=== PATIENT | male | born 1955 | race Caucasian/White ===

== ENCOUNTER 2020-02-12 13:35 | Emergency (ER) | payer OTHER, SELFPAY ==
[~2020-02-12] VITALS: Ht 175.3 cm; Wt 97.9 kg
[2020-02-12 14:42] LABS: BASO # 0.1 10^3/uL (0.0-0.2); BASO % 0.7 % (0.0-1.0); EOS # 0.1 10^3/uL (0.0-0.5); EOS % 0.7 % (0.0-3.0); HEMATOCRIT 45.1 % (42.0-52.0); HEMOGLOBIN 14.1 g/dl (13.5-17.5); LYMPH # 1.9 10^3/uL (1.5-5.0); LYMPH % 27.2 % (24.0-44.0); MEAN CORPUSCULAR HEMOGLOBIN 27.1 pg (27.0-33.0); MEAN CORPUSCULAR HGB CONC 31.3 g/dl (32.0-36.5); MEAN CORPUSCULAR VOLUME 86.7 fl (80.0-96.0); MONO # 0.5 10^3/uL (0.0-0.8); MONO % 6.7 % (0.0-5.0); NEUTROPHILS # 4.5 10^3/uL (1.5-8.5); NEUTROPHILS % 64.1 % (36.0-66.0); PLATELET COUNT, AUTOMATED 312 10^3/uL (150-450)
--- NOTE | 2020-02-12 14:47 | REP ---
INDICATION: hypertensive urgency; vertigo. COMPARISON: None. TECHNIQUE: Helical scanning is acquired. 5 mm axial images were reformatted. Coronal MPR images were generated. FINDINGS: Bone window settings demonstrate an intact bony calvarium. There is no evidence of skull fracture or incidental bony calvarial lesion. The visualized paranasal sinuses appear clear. No intraorbital abnormality is seen. On soft tissue window setting images; the lateral, third, and fourth ventricles are normal in size and position. Pimentel-white differentiation pattern is normal above and below the tentorium. There are is no evidence of intracranial hemorrhage. No mass, edema, infarction, or midline shift is seen. No extra-axial fluid collection is appreciated. There are subtle subcortical and periventricular white matter changes in the frontal lobe on the right consistent with mild small vessel atherosclerotic changes. There is minimal vascular calcification in the carotid siphons. IMPRESSION: Mild small vessel changes and vascular calcification. No acute intracranial abnormality.. <Electronically signed by Giovanni Araiza > 02/12/20 1286
--- NOTE | 2020-02-12 15:12 | REP ---
INDICATION: hypertensive urgency. COMPARISON: None. TECHNIQUE: Sitting AP portable chest radiograph. FINDINGS: Monitoring electrodes are seen. Lungs are well inflated and clear. The pleural angles are sharp. Heart size is borderline. Pulmonary vasculature is not increased. No bony abnormality is seen. IMPRESSION: Borderline heart size. Otherwise no acute disease. <Electronically signed by Giovanni Araiza > 02/12/20 0291
[2020-02-12] MEDS ORDERED: LABETALOL 100MG/20ML VIAL IV STA ×2 (15:16→15:44)
[2020-02-12 15:57] VITALS: BP 170/86
[2020-02-12 16:13] LABS: BLOOD UREA NITROGEN 11 MG/DL (7-18); CALCIUM LEVEL 8.9 MG/DL (8.8-10.2); CARBON DIOXIDE LEVEL 29 MEQ/L (21-32); CHLORIDE LEVEL 108 MEQ/L (98-107); CPK CREATINE PHOSPHOKINASE 66 U/L (39-308); CREATININE FOR GFR 0.99 MG/DL (0.70-1.30); GLOMERULAR FILTRATION RATE > 60.0 (>49); GLUCOSE, FASTING 111 MG/DL (70-100); MB/CK RELATIVE INDEX 3.03 (< OR =4); POTASSIUM SERUM 4.4 MEQ/L (3.5-5.1); SODIUM LEVEL 142 MEQ/L (136-145); TROPONIN I < 0.02 NG/ML (< 0.10)
[2020-02-12 17:31] VITALS: BP 174/81
[2020-02-12 17:47] VITALS: O2SAT 98
[2020-02-12] MEDS ORDERED: CHLO125TA PO ×2 (17:51→17:53)
[2020-02-12] MEDS ORDERED: K-TA1TAB PO (17:51)
[2020-02-12] MEDS ORDERED: LABE200T32 PO (17:51)
--- NOTE | 2020-02-13 08:42 | ECGEPIP ---
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
== END 2020-02-12 18:12 | disposition home or self-care (01) ==
LOC: M ED 13:35
DX: I16.0 Hypertensive urgency (principal); R00.0 Tachycardia, unspecified; I10 Essential (primary) hypertension; F17.200 Nicotine dependence, unspecified, uncomplicated; Z88.0 Allergy status to penicillin

== ENCOUNTER 2020-04-28 19:22 | Emergency (ER) | payer BC ==
[~2020-04-28] VITALS: Ht 175.3 cm; Wt 93.2 kg
[~2020-04-28 19:22] MED LIST: CHLO125TA PO; K-TA1TAB PO; LABE200T32 PO
[2020-04-28] MEDS ORDERED: MECLIZINE 25 MG TABLET PO ONE (20:45)
--- OUTSIDE RECORDS SUMMARY | 2020-04-28 20:52 | CCD | Continuity of Care Document ---
Author Author Pascual REID Organization Unknown Address [address] [address] Phone [phone] Care Team Providers Care College Intern Name Role Phone Adeel Bass JR, MD [facility] Unavailable Problems Description No Information Available Social History Type Date Description Comments Sex Unknown ETOH Use consumes 5-6 beers per week Tobacco Use Start: Unknown Patient has never smoked Allergies, Adverse Reactions, Alerts Active Allergies Reaction Severity Comments Date Penicillin G rash 03/17/2020 Medications Active Medications SIG Qnty Indications Ordering Provide r Date Labetalol HCL 200mg Tablets 1 by mouth twice a day 180tabs RICHY Joe JR 021 Potassium Chloride ER 20Meq Tablet s ER 1 by mouth every day 90tabs RICHY Joe JR 08/2020 Chlorthalidone 25mg Tablets take 1/2 tablet by mouth every morning 45tabs RICHY Joe JR 03/17/2020 History Medications Chlorthalidone 25mg Tablets take 1/2 tablet by mouth every morning 45tabs RICHY Joe JR 03/17/2020 - 03/17/2020 Immunizations Description No Information Available Vital Signs Date Vital Result Comment 03/17/2020 9:12am BP Systolic 144 mmHg BP Diastolic 80 mmHg Heart Rate 84 /min Height 68.25 inches 5'8.25" Weight 204.00 lb BMI (Body Mass Index) 30.8 kg/m2 Results Test Acquired Date Facility Test Result H/L Range Note Laboratory test finding 03/17/2020 [facility] [employer] Machine Operator dominique cabrera Maintenance Supervisor 2Nd Shift: [place] [address] [phone] PSA <pending> Procedures Description No Information Available Medical Devices Description No Information Available Encounters Description No Information Available Assessments Description No Information Available Plan of Treatment 03/17/2020 - RICHY Joe JR* All * New Medication:* Labetalol HCL 200 mg - 1 by mouth twice a day * Potassium Chloride ER 20 Meq - 1 by mouth every day * Chlorthalidone 25 mg - take 1/2 tablet by mouth every morning * Chlorthalidone 25 mg - take 1/2 tablet by mouth every morning Functional Status Description No Information Available Mental Status Description No Information Available Referrals Description No Information Available
--- OUTSIDE RECORDS SUMMARY | 2020-04-28 20:52 | CCD | Continuity of Care Document ---
Author Author Pascual WOODS Organization Unknown Address [address] [address] Phone [phone] Care Team Providers Care Churn Operator Margarine Name Role Phone Adeel Bass JR, MD [facility] Unavailable Problems Description No Information Available Social History Type Date Description Comments Sex Unknown ETOH Use consumes 5-6 beers per week Tobacco Use Start: Unknown Patient has never smoked Exercise Type/Frequency Exercises regularly Walk s regularly 6-7 miles a day Smoke Alarms Carbon Monoxide Detector: Yes Smoke Alarms Yes Allergies, Adverse Reactions, Alerts Active Allergies Reaction [...] Date Facility Test Result H/L Range Note Complete Blood Count 03/17/2020 [facility] Biometrics Technician: [place] [address] [phone] WBC 7.3 x10*3/UL 4.1 - 10.9 RBC 4.90 x10*6/UL 4.20 - 6.30 Hemoglobin 13.9 g/dL 12.0 - 18.0 Hematocrit 40.5 % 37.0 - 51.0 MCV 82.6 fL 80.0 - 97.0 MCH 28.3 pg 26.0 - 32.0 MCHC 34.2 g/dL 31.0 - 38.0 RDW 13.1 % 11.6 - 13.7 PLT 216 x10*3/UL 140 - 440 MPV 7.5 FL Low 7.8 - 11.0 Lymph % 36.2 % 10.0 - 58.5 Mid % 7.5 % 1.7 - 9.3 Neut % 56.3 % 37.0 - 92.0 Lymph # 2.6 x10*3/UL 0.6 - 4.1 Mid # 0.6 x10*3/UL 0.1 - 0.6 Neut # 4.1 x10*3/UL 2.0 - 7.8 Comprehensive Chem Profile 03/17/2020 [facility] Biometrics Technician: Dr Adeel Bass [place], [place] [id number] [phone] Glucose 112 mg/dL High 74 - 99 1 BUN 14 mg/dL 7 - 18 Creatinine 1.2 mg/dL 0.6 - 1.3 Sodium 140 mEq/L 136 - 145 Potassium 4.1 mEq/L 3.5 - 5.1 Chloride 102 mEq/L 98 - 107 Carbon Dioxide 31 mEq/L 21 - 32 Calcium 9.4 mg/dL 8.5 - 10.1 Alk. Phosphatase 140 mg/dL High 46 - 116 2 Total Bilirubin 1.1 mg/dL High 0.2 - 1.0 Ast (Sgot) 78 U/L High 15 - 37 Alt (SGPT) 67 U/L 12 - 78 Albumin 3.9 g/dL 3.4 - 5.0 Total Protein 7.3 g/dL 6.4 - 8.2 A/G Ratio 1.15 CALC 1.00 - 1.90 GFR >= 60 mL/min >60 GFR >= 60 mL/min >60 3 Lipid Profile 03/17/2020 [facility] Biometrics Technician: Dr Adeel Bass [place], [place] [id number] [phone] Cholesterol 240 mg/dL High 131 - 200 Triglycerides 95 mg/dL 30 - 150 HDL Cholesterol 47 mg/dL 35 - 60 LDL (Calculated) 174 CALC High 50 - 159 Laboratory test finding 03/17/2020 [facility] [employer], Biometrics Technician: [place] [address] [phone] PSA 1.01 ng/mL <4.00 4 Microalbumin/Creatinine Urine 03/17/2020 [facility], Biometrics Technician: [place] [address] [phone] Microalbumin Urine 58.7 mg/L High 1.3 - 20.0 Urine Creatinine 133.0 mg/dL High 30.0 - 125.0 Microalb/Creat Ratio 44.1 ug/mg High 0.0 - 30.0 1 100-125 mg/dL PRE-DIABET ES/FASTING >126 mg/dL DIABETES/FASTING 2 NOTE: ALK PHOS,T.BILI,AST VERIFIED 3 CHRONIC KIDNEY DISEASE STAGI NG PER NKF STAGE I & II GFR >= 60 NORMAL TO MILDLY DECREASED STAGE III GFR 30-59 MODERATELY DECREASED STAGE IV GFR 15-29 SEVERELY DECREASED STAGE V GFR <15 VERY LITTLE GFR LEFT ESRD GFR <15 ON AIRPORT BAGGAGE SCREENER 4 This assay was performed on the Siemens Dimension EXL using the B- Galactosidase/CPRG methodology and should not be compared interchangeably with other methods. The PSA should not be used alone as a screening test for the presence or absence of malignant disease. Procedures Date Code Description Status 03/17/2020 63550 EKG/Interpretation & Report Comp leted Medical Devices Description No Information Available Encounters Type Date Location Provider Dx Diagnosis Office Visit 03/17/2020 9:00a [facility] Woods JR PA Z00.00 Encntr for general adult med ical exam w/o abnormal findings I10 Essential (primary) hyperten cruz R00.0 Tachycardia, unspecified E66.09 Other obesity due to excess calories Z68.30 Body mass index [BMI]30.0-30 .9, adult Z13.220 Encounter for screening for lipoid disorders Z12.5 Encounter for screening for malignant neoplasm of prostate Z13.89 Encounter for screening for other disorder Assessments Date Code Description Provider 03/17/2020 Z00.00 Encounter for genera l adult medical examination without abnormal findings RICHY Joe JR 03/17/2020 I10 Essential (primary) hypertension RICHY Joe JR 03/17/2020 R00.0 Tachycardia, unspecified RICHY Joe JR 03/17/2020 E66.09 Other obesity due to excess amarilis arabella RICHY Joe JR 03/17/2020 Z68.30 Body mass index [BMI]30.0-30.9, adult RICHY Joe JR 03/17/2020 Z13.220 Encounter for screening for lipo id disorders RICHY Joe JR 03/17/2020 Z12.5 Encounter for screening for varun gnant neoplasm of prostate RICHY Joe JR 03/17/2020 Z13.89 Encounter for screening for othe r disorder RICHY Joe JR Plan of Treatment Future Appointment(s):* 06/21/2020 8:50 am - Lab Schedule at [facility] * 09/16/2020 10:00 am - RICHY Joe JR at [facility] 03/17/2020 - RICHY Joe JR* Z00.00 Encounter for general adult medical examination without abnormal findings* Comments:* Labs reviewed, elevated LFTs and cholesterol, admits to drinking, will try to cut back and eat Mediterranean style diet, will consider statin in future, states "he does not want to take medicine", advised alcohol cut back and diet with continued exercise, increase fruits and vegetables to 4-5 servings daily * I10 Essential (primary) hypertension* Comments:* He is currently not at [facility]-8 goals, diet and exercise were discussed including Mediterranean diet and 30 minutes of aerobic exercise daily, continue current medication regimen at this time. He had not had his medications for about 8 days * R00.0 Tachycardia, unspecified* Comments:* HR was elevated, restart on labetolol should help this, no symptoms * E66.09 Other obesity due to excess calories* Comments:* Diet and exercise as above * Z68.30 Body mass index [BMI]30.0-30.9, adult * Z13.220 Encounter for screening for lipoid disorders* Comments:* Lipids elevated, refused treatment at this time, will attempt in future * Z12.5 Encounter for screening for malignant neoplasm of prostate * Z13.89 Encounter for screening for other disorder * All * New Medication:* Labetalol HCL 200 mg - 1 by mouth twice a day * Potassium Chloride ER 20 Meq - 1 by mouth every day * Chlorthalidone 25 mg - take 1/2 tablet by mouth every morning * Chlorthalidone 25 mg - take 1/2 tablet by mouth every morning * Comments:* COVID precautions discussed; frequent hand washing, social distancing and mask wearing RTC 6 months or sooner PRN Functional Status Description No Information Available Mental Status Description No Information Available Referrals Description No Information Available
--- OUTSIDE RECORDS SUMMARY | 2020-04-28 20:52 | CCD | Continuity of Care Document ---
Author Author Pascual REID Organization Unknown Address [address] [address] Phone [phone] Care Team Providers Care Admittance Attendant Name Role Phone Adeel Bass JR, MD [facility] Unavailable Problems Description No Information Available [...] H/L Range Note Complete Blood Count 03/17/2020 [facility] Wheelchair Driver: [place] [address] [phone] WBC 7.3 x10*3/UL 4.1 - 10.9 RBC [...] 2.0 - 7.8 Comprehensive Chem Profile 03/17/2020 [facility], Wheelchair Driver: [place] [address] [phone] Glucose 112 mg/dL High 74 - 99 [...] 60 mL/min >60 3 Lipid Profile 03/17/2020 [facility] , Wheelchair Driver: [place] [address] [phone] Cholesterol 240 mg/dL High 131 - 200 Triglycerides 95 mg/dL 30 - 150 HDL Cholesterol 47 mg/dL 35 - 60 LDL (Calculated) 174 CALC High 50 - 159 Laboratory test finding 03/17/2020 [facility] [employer] [facility] deborah, Wheelchair Driver: Dr Adeel Monroylogg [place], [place] [id number] [phone] PSA 1.01 ng/mL <4.00 4 Microalbumin/Creatinine Urine 03/17/2020 [facility] Wheelchair Driver: Dr Adeel Bass [place], [place] [id number] [phone] Microalbumin Urine 58.7 mg/L High 1.3 - [...] LITTLE GFR LEFT ESRD GFR <15 ON MANUFACTURING ANALYST 4 This assay was performed on the Siemens Dimension EXL using the B- Galactosidase/CPRG methodology and should not be compared interchangeably with other methods. The PSA should not be used alone as a screening test for the presence or absence of malignant disease. Procedures Description No Information Available Medical Devices Description No Information Available Encounters Description No Information Available Assessments Description No Information Available Plan of Treatment Future Appointment(s):* 09/16/2020 10:00 am - RICHY Joe JR at [facility] 03/17/2020 - RICHY Joe JR* All * [...]
--- OUTSIDE RECORDS SUMMARY | 2020-04-28 20:53 | CCD ---
Author Author [facility] Organization [facility] Address Unknown Phone Unavailable Care Team Providers Care Hall Clerk Name Role Phone FRANKLIN JR, Hilton JENKINS PA-C Unavailable Unavailable PICKERAL JR, Hilton JENKINS PA-C Unavailable Unavailable PICKERAL JR, Hilton ALICE PA-C Unavailable Unavailable PICKERAL JR, Hilton JENKINS PA-C Unavailable Unavailable PICKERAL JR, Hilton ALICE PA-C Unavailable Unavailable PICKERAL JR, Hilton JENKINS PA-C Unavailable Unavailable PICKERAL JR, Hilton JENKINS PA-C Unavailable Unavailable PICKERAL JR, Hilton ALICE PA-C Unavailable Unavailable PICKERAL JR, Hilton ALICE PA-C Unavailable Unavailable PICKERAL JR, Hilton ALICE PA-C Unavailable Unavailable PICKERAL JR, Hilton ALICE PA-C Unavailable Unavailable PICKERAL JR, Hilton ALICE PA-C Unavailable Unavailable PICKERAL JR, Hilton ALICE PA-C Unavailable Unavailable PICKERAL JR, Hilton ALICE PA-C Unavailable Unavailable PICKERAL JR, Hilton LAICE PA-C Unavailable Unavailable PICKERAL JR, Hilton ALICE PA-C Unavailable Unavailable PICKERAL JR, Hilton ALICE PA-C Unavailable Unavailable PICKERAL JR, Hilton ALICE PA-C Unavailable Unavailable PICKERAL JR, Hilton ALICE PA-C Unavailable Unavailable PICKERAL JR, Hilton ALICE PA-C Unavailable Unavailable PICKERAL JR, Hilton ALICE PA-C Unavailable Unavailable Re-disclosure Warning The records that you are about to access may contain information from federally-assisted alcohol or drug abuse programs. If such information is present, then the following federally mandated warning applies: This information has been disclosed to you from records protected by federal confidentiality rules (42 CFR part 2). The federal rules prohibit you from making any further disclosure of this information unless further disclosure is expressly permitted by the written consent of the person to whom it pertains or as otherwise permitted by 42 CFR part 2. A general authorization for the release of medical or other information is NOT sufficient for this purpose. The Federal rules restrict any use of the information to criminally investigate or prosecute any alcohol or drug abuse patient.The records that you are about to access may contain highly sensitive health information, the redisclosure of which is protected by Article 27-F of the [facility] Public Health law. If you continue you may have access to information: Regarding HIV / AIDS; Provided by facilities licensed or operated by the [facility] Office of Mental Health; or Provided by the [facility] Office for People With Developmental Disabilities. If such information is present, then the following [facility] mandated warning applies: This information has been disclosed to you from confidential records which are protected by state law. State law prohibits you from making any further disclosure of this information without the specific written consent of the person to whom it pertains, or as otherwise permitted by law. Any unauthorized further disclosure in violation of state law may result in a fine or fpc sentence or both. A general authorization for the release of medical or other information is NOT sufficient authorization for further disc losure. Encounters Encounter Providers Location Date Indications Data Source(s ) Outpatient Attender: ALICE Childs 0 03/17/2020 08:00:00 AM EST [facility] ([facility] ) Medications Medication Brand Name Start Date Product Form Dose Route Admi nistrative Instructions Pharmacy Instructions Status Indications Reaction Description Data Source(s) 25 mg 03/17/2020 12:00:00 AM EST tablet 45 TAKE ONE HALF TABLET BY MOUTH EVERY MORNING TAKE ONE HALF TABLET BY MOUTH EVERY MORNING SOLD: 03/17/2020 [facility] Chlorthalidone 25 MG Oral Tablet Chlorthalidone 03/17/2020 12:00:00 A M EST ORAL active [facility] Potassium Chloride 20 MEQ Extended Release Oral Tablet Potas sium Chloride ER 03/17/2020 12:00:00 AM EST ORAL active [facility] ([facility]) Chlorthalidone 25 MG Oral Tablet Chlorthalidone 03/17/2020 12:00:00 A M EST ORAL completed [facility] 200 mg 03/17/2020 12:00:00 AM EST tablet 180 TAKE ONE TABLET BY MOUTH TWICE A DAY TAKE ONE TABLET BY MOUTH TWICE A DAY SOLD: 03/17/2020 [facility] 20 mEq 03/17/2020 12:00:00 AM EST tablet,ER particles/cry stals 90 TAKE ONE TABLET BY MOUTH EVERY DAY TAKE ONE TABLET BY MOUTH EVERY DAY SOLD: 03/17/2020 [facility] Labetalol hydrochloride 200 MG Oral Tablet Labetalol HCL 03/17/2020 12:00:00 AM EST ORAL active [facility] 20 mEq 02/13/2020 12:00:00 AM EST tablet extended release 30 TAKE ONE TABLET BY MOUTH ONCE DAILY TAKE ONE TABLET BY MOUTH ONCE DAILY SOLD: 02/13/2020 [facility] 25 mg 02/13/2020 12:00:00 AM EST tablet 30 TAKE 1/2 TABLET BY MOUTH DAILY TAKE 1/2 TABLET BY MOUTH DAILY SOLD: 02/13/2020 [facility] 200 mg 02/13/2020 12:00:00 AM EST tablet 60 TAKE ONE TABLET BY MOUTH TWO TIMES A DAY TAKE ONE TABLET BY MOUTH TWO TIMES A DAY SOLD: 02/13/2020 [facility] Insurance Providers Payer name Policy type / Coverage type Policy ID Covered libertarian ID Covered libertarian's relationship to jin Policy Jin [facility] Information [facility]/[phone] [id number] SP [id number] SELF PAY ONLY [id number] SP [id number] [facility] [id number] SP [id number] SELF PAY SP [facility] CLAIMS [id number] SP [id number] Surgeries/Procedures Procedure Description Date Indications Data Source(s) ECG ROUTINE ECG W/LEAST 12 LDS W/I&R 03/17/2020 12:00: 00 AM EST [facility] ([facility]) Results ID Date Data Source [id number] 03/17/2020 08:41:00 AM EST [facility] ([facility]) Name Value Range Interpretation Code Description Data Nini rce(s) Supporting Document(s) Microalbumin Urine 58.7 mg/L 1.3-20.0 [facility] ([facility]) Urine Creatinine 133.0 mg/dL 30.0-125.0 [facility] ([facility]) Microalb/Creat Ratio 44.1 ug/mg 0.0-30.0 [facility] ( [facility]) ID Date Data Source [id number] 03/17/2020 08:41:00 AM EST [facility] ([facility]) Name Value Range Interpretation Code Description Data Nini rce(s) Supporting Document(s) Prostate specific Ag [Mass/volume] in Serum or Plasma 1.01 ng/mL [facility] ([facility]) This assay was performed on the Siemens Dimension EXL using the B- Galactosidase/CPRG methodology and should not be compared interchangeably with other methods. The PSA should not be used alone as a screening test for the presence or absence of malignant disease. ID Date Data Source [id number] 03/17/2020 08:41:00 AM EST [facility] ([facility]) Name Value Range Interpretation Code Description Data Nini rce(s) Supporting Document(s) Cholesterol [Mass/volume] in Serum or Plasma 240 mg/dL 131-200 [facility] ([facility]) Triglyceride [Mass/volume] in Serum or Plasma 95 mg/dL 30-150 [facility] ([facility]) Cholesterol in HDL [Mass/volume] in Serum or Plasma 47 mg/dL 35-60 [facility] ([facility]) Cholesterol in LDL [Mass/volume] in Serum or Plasma by calcu lation 174 CALC 50-159 [facility] ([facility]) ID Date Data Source [id number] 03/17/2020 08:41:00 AM EST [facility] ([facility]) Name Value Range Interpretation Code Description Data Nini rce(s) Supporting Document(s) Glucose [Mass/volume] in Serum or Plasma 112 mg/dL 74-99 [facility] ([facility]) 100-125 mg/dL PRE-DIABETES/FASTING >126 mg/dL DIABETES/FASTING Sodium [Moles/volume] in Serum or Plasma 140 meq/L 136-145 [facility] ([facility]) Creatinine 1.2 mg/dL 0.6-1.3 [facility] Urea nitrogen [Mass/volume] in Serum or Plasma 14 mg/dL 7-18 [facility] ([facility]) Potassium [Moles/volume] in Serum or Plasma 4.1 meq/L 3.5-5.1 [facility] ([facility]) Chloride [Moles/volume] in Serum or Plasma 102 meq/L 98-107 [facility] ([facility]) Carbon dioxide, total [Moles/volume] in Serum or Plasma 31 meq/L 21 -32 [facility] Total Bilirubin 1.1 mg/dL 0.2-1.0 [facility] ([facility]) Calcium [Mass/volume] in Serum or Plasma 9.4 mg/dL 8.5-10.1 [facility] ([facility]) Alkaline phosphatase isoenzyme [Units/volume] in Serum or Pl asma 140 mg/dL 46-116 [facility] ([facility]) NOTE: ALK PHOS,T.BILI,AST VERIFIED Aspartate aminotransferase [Enzymatic activity/volume] in Serum or Plasma 78 U/L 15-37 [facility] ([facility] ) Alanine aminotransferase [Enzymatic activity/volume] in Seru m or Plasma 67 U/L 12-78 [facility] Albumin [Mass/volume] in Serum or Plasma 3.9 g/dL 3.4-5.0 [facility] ([facility]) Glomerular filtration rate/1.73 sq M pre dicted among non-blacks [Volume Rate/Area] in Serum or Plasma by Creatinine-based formula (MDRD) Laboratory test result [facility] Proteinase 3 Ab [Units/volume] in Serum 7.3 g/dL 6.4-8.2 [facility] A/G Ratio 1.15 CALC 1.00-1.90 [facility]) Glomerular filtration rate/1.73 sq M pre dicted among blacks [Volume Rate/Area] in Serum or Plasma by Creatinine-based formula (MDRD) Laboratory test result [facility] <content>CHRONIC KIDNEY DISEASE STAGING PER NKF</content>
<content></content>
<content>STAGE I & II GFR >= 60 NORMAL TO MILDLY DECREASED</content>
<content>STAGE III GFR 30-59 MODERATELY DECREASED</content>
<content>STAGE IV GFR 15-29 SEVERELY DECREASED</content>
<content>STAGE V GFR <15 VERY LITTLE GFR LEFT</content>
<content>ESRD GFR <15 ON MANAGER METAL</content>
<content></content> ID Date Data Source [id number] 03/17/2020 08:41:00 AM EST [facility] ([facility]) Name Value Range Interpretation Code Description Data Nini rce(s) Supporting Document(s) Leukocytes [#/volume] in Blood by Automated count 7.3 x10*3/UL 4.1-10 .9 [facility] ([facility]) Hemoglobin [Mass/volume] in Blood 13.9 g/dL 12.0-18.0 [facility] ([facility]) Erythrocytes [#/volume] in Blood by Automated count 4.90 x10*6/UL 4.2 0-6.30 [facility] ([facility]) Hematocrit [Volume Fraction] of Blood by Automated count 40.5 % 3 7.0-51.0 [facility] ([facility]) MCHC 34.2 g/dL 31.0-38.0 [facility] MCH 28.3 pg 26.0-32.0 [facility] MCV 82.6 fL 80.0-97.0 [facility] Erythrocyte distribution width [Ratio] by Automated count 13.1 % 11.6-13.7 [facility] ([facility]) Platelets [#/volume] in Blood by Automated count 216 x10*3/UL 140-440 [facility] ([facility]) MPV 7.5 FL 7.8-11.0 [facility] Mid % 7.5 % 1.7-9.3 [facility] Lymph % 36.2 % 10.0-58.5 [facility] Neut % 56.3 % 37.0-92.0 [facility] Mid # 0.6 x10*3/UL 0.1-0.6 [facility] ([facility]) Neut # 4.1 x10*3/UL 2.0-7.8 [facility] Lymph # 2.6 x10*3/UL 0.6-4.1 [facility] ([facility]) Procedure Vital Signs ID Date Data Source UNK Name Value Range Interpretation Code Description Data Source(s) Body mass index (BMI) [Ratio] 30.8 kg/m2 30.8 k g/m2 [facility] ([facility]) Body weight 204.00 [lb_av] 204.00 [lb_av] RAVINDEREN T ([facility]) Body height 68.25 [in_i] 68.25 [in_i] [facility] 5'8.25" Heart rate 84 /min 84 /min [facility] Diastolic blood pressure 80 mm[Hg] 80 mm[Hg] [facility] ([facility]) Systolic blood pressure 144 mm[Hg] 144 mm[Hg] Maria Alejandra MENA ([facility])
[2020-04-28] MEDS ORDERED: MECL1TAB31 PO (21:32)
[2020-04-28 21:42] VITALS: O2SAT 95
[2020-04-28 21:46] VITALS: BP 133/76
--- NOTE | 2020-04-30 08:11 | ECGEPIP ---
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
== END 2020-04-28 22:00 | disposition home or self-care (01) ==
LOC: M ED 19:22
DX: H81.4 Vertigo of central origin (principal); I10 Essential (primary) hypertension; F17.200 Nicotine dependence, unspecified, uncomplicated; Z88.0 Allergy status to penicillin

== ENCOUNTER → 2020-09-27 | Outpatient (CLI) | payer BC ==
[~2020-09-27] MED LIST changes: +MECL1TAB31 PO
--- NOTE | 2020-09-27 14:52 | REP ---
INDICATION: LT LEG PAIN SWELLING ? DVT COMPARISON: None. TECHNIQUE: Real time compression and duplex Doppler interrogation of the left lower extremity deep venous system is performed.Compression of the left peroneal and posterior tibial veins is performed. FINDINGS: The left common femoral, superficial femoral and popliteal veins are fully compressible with transducer pressure and demonstrate normal spontaneous and phasic flow, without evidence of deep venous thrombosis. The visualized left peroneal and posterior tibial veins demonstrate no thrombus. IMPRESSION: No evidence of deep venous thrombosis of the left lower extremity femoral popliteal venous system.No thrombus in the visualized left peroneal and posterior tibial veins. <Electronically signed by Pascual Pimentel > 09/27/20 [id number]
== END ==
LOC: M RAD 13:48
PROVIDERS: ATTEND Physician Assistant Medical
DX: M79.89 Other specified soft tissue disorders (principal)

== ENCOUNTER 2020-12-31 14:16 | Emergency (ER) | payer BC ==
[~2020-12-31] VITALS: Ht 175.3 cm; Wt 90.9 kg
[2020-12-31 15:15] LABS: VENOUS BASE EXCESS 1.1 (-2.0-2.0); VENOUS HCO3 25.8 MEQ/L (23.0-27.0); VENOUS PARTIAL PRESSURE CO2 41.3 mmHg (38.0-50.0); VENOUS PARTIAL PRESSURE O2 74.9 mmHg (30.0-50.0); VENOUS PH 7.414 UNITS (7.330-7.430); VENOUS STANDARD HCO3 25.4 MEQ/L; VENOUS TOTAL CO2 27.1 MEQ/L (24.0-28.0)
[2020-12-31 15:19] LABS: BASO # 0.1 10^3/uL (0.0-0.2); BASO % 0.7 % (0.0-1.0); EOS # 0.1 10^3/uL (0.0-0.5); EOS % 1.2 % (0.0-3.0); HEMATOCRIT 39.3 % (42.0-52.0); HEMOGLOBIN 13.1 g/dl (13.5-17.5); LYMPH # 1.8 10^3/uL (1.5-5.0); LYMPH % 27.1 % (24.0-44.0); MEAN CORPUSCULAR HEMOGLOBIN 27.9 pg (27.0-33.0); MEAN CORPUSCULAR HGB CONC 33.3 g/dl (32.0-36.5); MEAN CORPUSCULAR VOLUME 83.6 fl (80.0-96.0); MONO # 0.8 10^3/uL (0.0-0.8); MONO % 11.2 % (2.0-8.0); NEUTROPHILS % 59.1 % (36.0-66.0); PLATELET COUNT, AUTOMATED 200 10^3/uL (150-450); WHITE BLOOD COUNT 6.7 10^3/uL (4.0-10.0)
--- NOTE | 2020-12-31 15:23 | REP ---
INDICATION: syncope. COMPARISON: 02/12/2020 also portable TECHNIQUE: Portable FINDINGS: The technique utilized in obtaining the radiograph has magnified the cardiac silhouette and accentuated the interstitial markings. The cardiomediastinal silhouette lung parrish are unchanged. No acute patchy parenchymal opacities or pleural effusions have developed. Mild cardiomegaly accentuated by technique cannot be ruled out. The osseous structures are stable and intact. IMPRESSION: There is no acute cardiopulmonary disease. <Electronically signed by Alex Fernandez > 12/31/20 [id number]
--- OUTSIDE RECORDS SUMMARY | 2020-12-31 15:29 | CCD | Continuity of Care Document ---
Author Author [facility] Organization Unknown Address [address] [address] Phone Unavailable Care Team Providers Care Fast Food Delivery Driver Name Role Phone Adeel Bass JR, MD AUTMaria Alejandra Unavailable Problems Description No Information Available Social History Type Date Description Comments Sex Unknown ETOH Use consumes 5-6 beers per week Tobacco Use Start: Unknown Patient has never smoked Exercise Type/Frequency Exercises regularly Walk s regularly 6-7 miles a day Smoke Alarms Carbon Monoxide Detector: Yes Smoke Alarms Yes Allergies, Adverse Reactions, Alerts Active Allergies Criticality Reaction | Severity Comments Date Penicillin G Unable to assess criticality rash 03/17/2020 Medications Active Medications SIG Qnty Indications Ordering Provide r Date Labetalol HCL 200mg Tablets 1 by mouth twice a day 180tabs RICHY Joe JR 021 Potassium Chloride ER 20Meq Tablet s ER 1 by mouth every day 90tabs RICHY Joe JR 08/2020 Chlorthalidone 25mg Tablets take 1/2 tablet by mouth every morning 45tabs RICHY Joe JR 03/17/2020 Immunizations Description No Information Available Vital Signs Date Vital Result Comment 09/24/2020 9:36am BP Systolic 148 mmHg BP Diastolic 88 mmHg BP Systolic Recheck 134 mmHg BP Diastolic Recheck 84 mmHg Heart Rate 95 /min Height 68.25 inches 5'8.25" Weight 199.00 lb O2 % BldC Oximetry 95 % BMI (Body Mass Index) 30.0 kg/m2 03/17/2020 9:12am BP Systolic 144 mmHg BP Diastolic 80 mmHg Heart Rate 84 /min Height 68.25 inches 5'8.25" Weight 204.00 lb BMI (Body Mass Index) 30.8 kg/m2 Results Test Acquired Date Facility Test Result H/L Range Note Complete Blood Count 09/24/2020 [facility] J[employer] Bag Clipper: [place] [address] [phone] WBC 6.6 x10*3/UL 4.1 - 10.9 RBC 4.81 x10*6/UL 4.20 - 6.30 Hemoglobin 13.3 g/dL 12.0 - 18.0 Hematocrit 39.8 % 37.0 - 51.0 MCV 82.6 fL 80.0 - 97.0 MCH 27.6 pg 26.0 - 32.0 MCHC 33.4 g/dL 31.0 - 38.0 RDW 13.3 % 11.6 - 13.7 PLT 222 x10*3/UL 140 - 440 MPV 7.3 FL Low 7.8 - 11.0 Lymph % 28.4 % 10.0 - 58.5 Mid % 8.0 % 1.7 - 9.3 Neut % 63.6 % 37.0 - 92.0 Lymph # 1.8 x10*3/UL 0.6 - 4.1 Mid # 0.6 x10*3/UL 0.1 - 0.6 Neut # 4.2 x10*3/UL 2.0 - 7.8 Basic Metabolic Panel 09/24/2020 [facility] [employer] [facility] Clipper: [place] [address] [phone] Glucose 136 mg/dL High 74 - 99 1 BUN 11 mg/dL 7 - 18 Creatinine 1.2 mg/dL 0.6 - 1.3 Sodium 137 mEq/L 136 - 145 Potassium 4.1 mEq/L 3.5 - 5.1 Chloride 102 mEq/L 98 - 107 Carbon Dioxide 28 mEq/L 21 - 32 Calcium 9.8 mg/dL 8.5 - 10.1 GFR >= 60 mL/min >60 GFR >= 60 mL/min >60 2 Liver Function Profile 07/05/2020 [facility] [facility] Clipper: Dr Ade[place] [address] [phone] Alk. Phosphatase 131 mg/dL High 46 - 116 Total Bilirubin 1.1 mg/dL High 0.2 - 1.0 Ast (Sgot) 37 U/L 15 - 37 Alt (SGPT) 44 U/L 12 - 78 Albumin 3.8 g/dL 3.4 - 5.0 Total Protein 7.1 g/dL 6.4 - 8.2 Direct Bilirubin 0.3 mg/dL High 0.0 - 0.2 A/G Ratio 1.15 CALC 1.00 - 1.90 1 100-125 mg/dL PRE-DIABET ES/FASTING >126 mg/dL DIABETES/FASTING 2 CHRONIC KIDNEY DISEASE STAGI NG PER NKF STAGE I & II GFR >= 60 NORMAL TO MILDLY DECREASED STAGE III GFR 30-59 MODERATELY DECREASED STAGE IV GFR 15-29 SEVERELY DECREASED STAGE V GFR <15 VERY LITTLE GFR LEFT ESRD GFR <15 ON PHOSPHORIC ACID SUPERVISOR Procedures Date Code Description Status 09/24/2020 67445 Office/Outpatient Established Mo d MDM 30-39 Min Completed Medical Devices Description No Information Available Encounters Type Date Location Provider Dx Diagnosis Office Visit 09/24/2020 10:00a [facility] RICHY Sorto JR I10 Essential (primary) hyperten cruz R22.42 Localized swelling, mass and lump, left lower limb R00.0 Tachycardia, unspecified E66.09 Other obesity due to excess calories Z68.30 Body mass index [BMI] 30.0-3 0.9, adult Assessments Date Code Description Provider 09/24/2020 I10 Essential (primary) hypertension RICHY Joe JR 09/24/2020 R22.42 Localized swelling, mass and lum p, left lower limb RICHY Joe JR 09/24/2020 R00.0 Tachycardia, unspecified RICHY Joe JR 09/24/2020 E66.09 Other obesity due to excess amarilis arabella RICHY Joe JR 09/24/2020 Z68.30 Body mass index [BMI]30.0-30.9, adult RICHY Joe JR 07/05/2020 R74.9 Abnormal serum enzyme level, uns pecified Lance Mcghee M.D. 07/05/2020 R74.9 Abnormal serum enzyme level, uns pecified Lab Schedule Plan of Treatment Future Appointment(s):* 03/29/2021 8:20 am - RICHY Joe JR at [facility] 09/24/2020 - Trent Woods JR PA* I10 Essential (primary) hypertension* Comments:* He is currently at [facility] goals, diet and exercise were discussed including Mediterranean diet and 30 minutes of aerobic exercise daily, continue current medication regimen at this time. * R22.42 Localized swelling, mass and lump, left lower limb* Comments:* I plan to give a left lower extremity ultrasound, advise elevation, heat and Tylenol for pain. Concern for DVT is very low, ultrasound may be pushed until next week. * R00.0 Tachycardia, unspecified* Comments:* Plan to continue Labetalol. BP is better controlled. Chest pain none, rate is much better controlled as well. * E66.09 Other obesity due to excess calories* Comments:* Weight is favorable. Continue diet and exercise. Monitor at next visit in 6 months. Sooner if needed. * Z68.30 Body mass index [BMI]30.0-30.9, adult Functional Status Description No Information Available Mental Status Description No Information Available Referrals Description No Information Available
--- OUTSIDE RECORDS SUMMARY | 2020-12-31 15:29 | CCD ---
Author Author [facility] Organization [facility] Address Unknown Phone Unavailable Care Team Providers Care Story Analyst Name Role Phone FRANKLIN VERDUZCO J ALICE PA-C Unavailable Unavailable PICKERAL JR, J ALICE PA-C Unavailable Unavailable PICKERAL JR, J ALICE PA-C Unavailable Unavailable PICKERAL JR, J ALICE PA-C Unavailable Unavailable PICKERAL JR, J ALICE PA-C Unavailable Unavailable PICKERAL JR, J ALICE PA-C Unavailable Unavailable PICKERAL JR, J ALICE PA-C Unavailable Unavailable PICKERAL JR, J ALICE PA-C Unavailable Unavailable PICKERAL JR, J ALICE PA-C Unavailable Unavailable PICKERAL JR, J ALICE PA-C Unavailable Unavailable PICKERAL JR, J ALICE PA-C Unavailable Unavailable PICKERAL JR, J ALICE PA-C Unavailable Unavailable PICKERAL JR, J ALICE PA-C Unavailable Unavailable PICKERAL JR, J ALICE PA-C Unavailable Unavailable PICKERAL JR, J ALICE PA-C Unavailable Unavailable PICKERAL JR, J ALICE PA-C Unavailable Unavailable PICKERAL JR, J ALICE PA-C Unavailable Unavailable PICKERAL JR, J ALICE PA-C Unavailable Unavailable PICKERAL JR, J ALICE PA-C Unavailable Unavailable PICKERAL JR, J ALICE PA-C Unavailable Unavailable PICKERAL JR, J ALICE PA-C Unavailable Unavailable PICKERAL JR, J ALICE PA-C Unavailable Unavailable PICKERAL JR, J ALICE PA-C Unavailable Unavailable PICKERAL JR, J ALICE PA-C Unavailable Unavailable PICKERAL JR, J ALICE PA-C Unavailable Unavailable PICKERAL JR, J ALICE PA-C Unavailable Unavailable PICKERAL JR, J ALICE PA-C Unavailable Unavailable Re-disclosure Warning The [...] is protected by Article 27-F of the [facility] Public Health law. If you continue you may have access to information: Regarding HIV / AIDS; Provided by facilities licensed or operated by the [facility] Office of Mental Health; or Provided by the [facility] Office for People With Developmental Disabilities. If such information is present, then the following [facility] mandated warning applies: This information has been [...] law may result in a fine or senior care sentence or both. A general authorization for the release of medical or other information is NOT sufficient authorization for further disc losure. Encounters Encounter Providers Location Date Indications Data Source(s ) Outpatient Attender: ALICE Childs 0 09/24/2020 10:00:00 AM EDT [facility] ([facility] ) Outpatient Attender: ALICE Childs 0 03/17/2020 08:00:00 AM EST [facility] ([facility] ) Immunizations Vaccine Date Status Description Data Source(s) COVID-19 VACCINE Moderna 06/18/2020 12:00:00 AM EDT completed [facility] Vaccine Series Complete: YESThis Data wa s Submitted to [facility] [employer]. COVID-19 VACCINE Moderna 05/21/2020 12:00:00 AM EST completed [facility] Vaccine Series Complete: NOThis Data was Submitted to [facility] [employer]. Medications Medication Brand Name Start Date Product Form Dose Route Admi nistrative Instructions Pharmacy Instructions Status Indications Reaction Description Data Source(s) 25 mg 09/24/2020 12:00:00 AM EDT tablet 45 TAKE ONE-HALF TABLET BY MOUTH EVERY MORNING TAKE ONE-HALF TABLET BY MOUTH EVERY MORNING SOLD: 12/02/2020 [facility] 25 mg 09/24/2020 12:00:00 AM EDT tablet 45 TAKE ONE-HALF TABLET BY MOUTH EVERY MORNING TAKE ONE-HALF TABLET BY MOUTH EVERY MORNING SOLD: 09/25/2020 [facility] Meclizine Hydrochloride 25 MG Oral Tablet MECLIZINE HCL 04/29/2020 12:00:00 AM EST tablet 30 TAKE ONE TABLET BY MOUTH EVERY 8 HOURS NEEDED VERTIGO/DIZZINESS TAKE ONE TABLET BY MOUTH EVERY 8 HOURS A S NEEDED VERTIGO/DIZZINESS SOLD: 04/29/2020 [facility] 25 mg 03/17/2020 12:00:00 AM EST tablet 45 TAKE ONE HALF TABLET BY MOUTH EVERY MORNING TAKE ONE HALF TABLET BY MOUTH EVERY MORNING SOLD: 03/17/2020 [facility] Chlorthalidone 25 MG Oral Tablet Chlorthalidone 03/17/2020 12:00:00 A M EST ORAL active [facility] ([facility]) Labetalol hydrochloride 200 MG Oral Tablet Labetalol HCL 03/17/2020 12:00:00 AM EST ORAL active [facility] ([facility]) 20 mEq 03/17/2020 12:00:00 AM EST tablet,ER particles/cry stals 90 TAKE ONE TABLET BY MOUTH EVERY DAY TAKE ONE TABLET BY MOUTH EVERY DAY SOLD: 03/17/2020 [facility] 200 mg 03/17/2020 12:00:00 AM EST tablet 180 TAKE ONE TABLET BY MOUTH TWICE A DAY TAKE ONE TABLET BY MOUTH TWICE A DAY SOLD: 07/28/2020 [facility] Potassium Chloride 20 MEQ Extended Release Oral Tablet Potas sium Chloride ER 03/17/2020 12:00:00 AM EST ORAL active [facility] ([facility]) 25 mg 03/17/2020 12:00:00 AM EST tablet 45 TAKE ONE HALF TABLET BY MOUTH EVERY MORNING TAKE ONE HALF TABLET BY MOUTH EVERY MORNING SOLD: 07/28/2020 [facility] Chlorthalidone 25 MG Oral Tablet Chlorthalidone 03/17/2020 12:00:00 A M EST ORAL completed [facility] ([facility]) 200 mg 03/17/2020 12:00:00 AM EST tablet 180 TAKE ONE TABLET BY MOUTH TWICE A DAY TAKE ONE TABLET BY MOUTH TWICE A DAY SOLD: 03/17/2020 [facility] 25 mg 03/17/2020 12:00:00 AM EST tablet 45 TAKE ONE HALF TABLET BY MOUTH EVERY MORNING TAKE ONE HALF TABLET BY MOUTH EVERY MORNING SOLD: 05/04/2020 [facility] Labetalol hydrochloride 200 MG Oral Tablet LABETALOL HCL 03/17/2020 12:00:00 AM EST tablet 180 TAKE ONE TABLET BY MOUTH TWI CE A DAY TAKE ONE TABLET BY MOUTH TWICE A DAY SOLD: 11/23/2020 [facility] 25 mg 02/13/2020 12:00:00 AM EST tablet 30 TAKE 1/2 TABLET BY MOUTH DAILY TAKE 1/2 TABLET BY MOUTH DAILY SOLD: 02/13/2020 [facility] 20 mEq 02/13/2020 12:00:00 AM EST tablet extended release 30 TAKE ONE TABLET BY MOUTH ONCE DAILY TAKE ONE TABLET BY MOUTH ONCE DAILY SOLD: 02/13/2020 [facility] 200 mg 02/13/2020 12:00:00 AM EST tablet 60 TAKE ONE TABLET BY MOUTH TWO TIMES A DAY TAKE ONE TABLET BY MOUTH TWO TIMES A DAY SOLD: 02/13/2020 [facility] Insurance Providers Payer name Policy type / Coverage type Policy ID Covered alliance party ID Covered alliance party's relationship to jin Policy Jin Plan Information [employer] [id number] SP [id number] [employer] [facility] [id number] SP [id number] [employer] [place] P[place] 302/307 [id number] SP [id number] [employer] [place] PPO 302/307 [id number] SP [id number] SELF PAY ONLY [id number] SP [id number] [facility] [id number] SP [id number] SELF PAY SP [facility] [id number] SP [id number] Problems, Conditions, and Diagnoses No Information Surgeries/Procedures Procedure Description Date Indications Data Source(s) OFFICE OUTPATIENT VISIT 25 MINUTES 09/24/2020 12:00:00 AM EDT [facility] ([facility]) ECG ROUTINE ECG W/LEAST 12 LDS W/I&R 03/17/2020 12:00: 00 AM EST [facility] ([facility]) Results ID Date Data Source [id number] 09/24/2020 09:52:00 AM EDT [facility] Name Value Range Interpretation Code Description Data Nini rce(s) Supporting Document(s) Creatinine 1.2 mg/dL 0.6-1.3 [facility] Urea nitrogen [Mass/volume] in Serum or Plasma 11 mg/dL 7-18 [facility] Glucose [Mass/volume] in Serum or Plasma 136 mg/dL 74-99 [facility]) 100-125 mg/dL PRE-DIABETES/FASTING >126 mg/dL DIABETES/FASTING Chloride [Moles/volume] in Serum or Plasma 102 meq/L 98-107 [facility] Sodium [Moles/volume] in Serum or Plasma 137 meq/L 136-145 [facility]) Potassium [Moles/volume] in Serum or Plasma 4.1 meq/L 3.5-5.1 [facility] Calcium [Mass/volume] in Serum or Plasma 9.8 mg/dL 8.5-10.1 [facility] Carbon dioxide, total [Moles/volume] in Serum or Plasma 28 meq/L 21 -32 [facility] Glomerular filtration rate/1.73 sq M pre dicted among blacks [Volume Rate/Area] in Serum or Plasma by Creatinine-based formula (MDRD) Laboratory test result [facility] <content>CHRONIC KIDNEY DISEASE STAGING PER NKF</content>
<content></content>
<content>STAGE I & II GFR >= 60 NORMAL TO MILDLY DECREASED</content>
<content>STAGE III GFR 30-59 MODERATELY DECREASED</content>
<content>STAGE IV GFR 15-29 SEVERELY DECREASED</content>
<content>STAGE V GFR <15 VERY LITTLE GFR LEFT</content>
<content>ESRD GFR <15 ON SENIOR ENGINEER</content>
<content></content> Glomerular filtration rate/1.73 sq M pre dicted among non-blacks [Volume Rate/Area] in Serum or Plasma by Creatinine-based formula (MDRD) Laboratory test result [facility] ID Date Data Source [id number] 09/24/2020 09:52:00 AM EDT [facility] Name Value Range Interpretation Code Description Data Nini rce(s) Supporting Document(s) Erythrocytes [#/volume] in Blood by Automated count 4.81 x10*6/UL 4.2 0-6.30 [facility] Leukocytes [#/volume] in Blood by Automated count 6.6 x10*3/UL 4.1-10 .9 [facility] MCV 82.6 fL 80.0-97.0 [facility] ([facility]) Hematocrit [Volume Fraction] of Blood by Automated count 39.8 % 3 7.0-51.0 [facility] Hemoglobin [Mass/volume] in Blood 13.3 g/dL 12.0-18.0 [facility] ([facility]) MCH 27.6 pg 26.0-32.0 [facility] ([facility]) MCHC 33.4 g/dL 31.0-38.0 [facility] ([facility]) Platelets [#/volume] in Blood by Automated count 222 x10*3/UL 140-440 [facility] Erythrocyte distribution width [Ratio] by Automated count 13.3 % 11.6-13.7 [facility] ([facility]) Mid % 8.0 % 1.7-9.3 [facility] ([facility]) MPV 7.3 FL 7.8-11.0 [facility] ([facility]) Lymph % 28.4 % 10.0-58.5 [facility] ([facility]) Lymph # 1.8 x10*3/UL 0.6-4.1 [facility] ([facility]) Neut % 63.6 % 37.0-92.0 [facility] ([facility]) Mid # 0.6 x10*3/UL 0.1-0.6 [facility] ([facility]) Neut # 4.2 x10*3/UL 2.0-7.8 [facility] ([facility]) ID Date Data Source [id number] 07/05/2020 08:32:00 AM EDT [facility] ([facility]) Name Value Range Interpretation Code Description Data Nini rce(s) Supporting Document(s) Alkaline phosphatase isoenzyme [Units/volume] in Serum or Pl asma 131 mg/dL 46-116 [facility] ([facility]) Aspartate aminotransferase [Enzymatic activity/volume] in Serum or Plasma 37 U/L 15-37 [facility] ([facility] ) Total Bilirubin 1.1 mg/dL 0.2-1.0 [facility] ([facility]) Albumin [Mass/volume] in Serum or Plasma 3.8 g/dL 3.4-5.0 [facility] ([facility]) Alanine aminotransferase [Enzymatic activity/volume] in Seru m or Plasma 44 U/L 12-78 [facility] ([facility]) Proteinase 3 Ab [Units/volume] in Serum 7.1 g/dL 6.4-8.2 [facility] ([facility]) A/G Ratio 1.15 CALC 1.00-1.90 [facility] ([facility]) Direct Bilirubin 0.3 mg/dL 0.0-0.2 [facility] ([facility]) ID Date Data Source [id number] 03/17/2020 08:41:00 AM EST [facility] ([facility]) Name Value Range Interpretation Code Description Data Nini rce(s) Supporting Document(s) Microalbumin Urine 58.7 mg/L 1.3-20.0 [facility] ([facility]) Urine Creatinine 133.0 mg/dL 30.0-125.0 [facility] ([facility]) Microalb/Creat Ratio 44.1 ug/mg 0.0-30.0 [facility] ( [facility]) ID Date Data Source [id number] 03/17/2020 08:41:00 AM EST [facility] ([facility]) Name Value Range Interpretation Code Description Data Nini rce(s) Supporting Document(s) Prostate specific Ag [Mass/volume] in Serum or Plasma 1.01 ng/mL [facility] ([facility]) This assay was performed on the Siemens Dimension EXL using the B- Galactosidase/CPRG methodology and should not be compared interchangeably with other methods. The PSA should not be used alone as a screening test for the presence or absence of malignant disease. ID Date Data Source [id number] 03/17/2020 08:41:00 AM EST [facility] ([facility]) Name Value Range Interpretation Code Description Data Nini rce(s) Supporting Document(s) Cholesterol [Mass/volume] in Serum or Plasma 240 mg/dL 131-200 [facility] ([facility]) Triglyceride [Mass/volume] in Serum or Plasma 95 mg/dL 30-150 [facility] ([facility]) Cholesterol in HDL [Mass/volume] in Serum or Plasma 47 mg/dL 35-60 [facility] ([facility]) Cholesterol in LDL [Mass/volume] in Serum or Plasma by calcu lation 174 CALC 50-159 [facility] ([facility]) ID Date Data Source [id number] 03/17/2020 08:41:00 AM EST [facility] ([facility]) Name Value Range Interpretation Code Description Data Nini rce(s) Supporting Document(s) Glucose [Mass/volume] in Serum or Plasma 112 mg/dL 74-99 [facility] ([facility]) 100-125 mg/dL PRE-DIABETES/FASTING >126 mg/dL DIABETES/FASTING Urea nitrogen [Mass/volume] in Serum or Plasma 14 mg/dL 7-18 [facility] ([facility]) Sodium [Moles/volume] in Serum or Plasma 140 meq/L 136-145 [facility] ([facility]) Creatinine 1.2 mg/dL 0.6-1.3 [facility] Potassium [Moles/volume] in Serum or Plasma 4.1 meq/L 3.5-5.1 [facility] ([facility]) Chloride [Moles/volume] in Serum or Plasma 102 meq/L 98-107 [facility] ([facility]) Calcium [Mass/volume] in Serum or Plasma 9.4 mg/dL 8.5-10.1 [facility] ([facility]) Carbon dioxide, total [Moles/volume] in Serum or Plasma 31 meq/L 21 -32 [facility] ([facility]) Total Bilirubin 1.1 mg/dL 0.2-1.0 [facility] ([facility]) Alkaline phosphatase isoenzyme [Units/volume] in Serum or Pl asma 140 mg/dL 46-116 [facility] ([facility]) NOTE: ALK PHOS,T.BILI,AST VERIFIED Aspartate aminotransferase [Enzymatic activity/volume] in Serum or Plasma 78 U/L 15-37 [facility] ([facility] ) Alanine aminotransferase [Enzymatic activity/volume] in Seru m or Plasma 67 U/L 12-78 [facility] Albumin [Mass/volume] in Serum or Plasma 3.9 g/dL 3.4-5.0 [facility] ([facility]) Proteinase 3 Ab [Units/volume] in Serum 7.3 g/dL 6.4-8.2 [facility] ([facility]) A/G Ratio 1.15 CALC 1.00-1.90 [facility]) Glomerular filtration rate/1.73 sq M pre dicted among non-blacks [Volume Rate/Area] in Serum or Plasma by Creatinine-based formula (MDRD) Laboratory test result [facility] Glomerular filtration rate/1.73 sq M pre dicted among blacks [Volume Rate/Area] in Serum or Plasma by Creatinine-based formula (MDRD) Laboratory test result [facility] ([facility]) <content>CHRONIC KIDNEY DISEASE STAGING PER NKF</content>
<content></content>
<content>STAGE I & II GFR >= 60 NORMAL TO MILDLY DECREASED</content>
<content>STAGE III GFR 30-59 MODERATELY DECREASED</content>
<content>STAGE IV GFR 15-29 SEVERELY DECREASED</content>
<content>STAGE V GFR <15 VERY LITTLE GFR LEFT</content>
<content>ESRD GFR <15 ON SENIOR ENGINEER</content>
<content></content> ID Date Data Source [id number] 03/17/2020 08:41:00 AM EST [facility] ([facility]) Name Value Range Interpretation Code Description Data Nini rce(s) Supporting Document(s) Hemoglobin [Mass/volume] in Blood 13.9 g/dL 12.0-18.0 [facility] ([facility]) Erythrocytes [#/volume] in Blood by Automated count 4.90 x10*6/UL 4.2 0-6.30 [facility] ([facility]) Leukocytes [#/volume] in Blood by Automated count 7.3 x10*3/UL 4.1-10 .9 [facility] ([facility]) MCV 82.6 fL 80.0-97.0 [facility] Hematocrit [Volume Fraction] of Blood by Automated count 40.5 % 3 7.0-51.0 [facility] ([facility]) MCHC 34.2 g/dL 31.0-38.0 [facility] [facility] MCH 28.3 pg 26.0-32.0 [facility] [facility] Erythrocyte distribution width [Ratio] by Automated count 13.1 % 11.6-13.7 [facility] ([facility]) Platelets [#/volume] in Blood by Automated count 216 x10*3/UL 140-440 [facility] ([facility]) MPV 7.5 FL 7.8-11.0 [facility] [facility] Mid % 7.5 % 1.7-9.3 [facility] [facility] Lymph % 36.2 % 10.0-58.5 [facility] [facility] Lymph # 2.6 x10*3/UL 0.6-4.1 [facility] ([facility]) Neut % 56.3 % 37.0-92.0 [facility] [facility] Mid # 0.6 x10*3/UL 0.1-0.6 [facility] Neut # 4.1 x10*3/UL 2.0-7.8 [facility] Procedure Social History No Information Vital Signs ID Date Data Source UNK Name Value Range Interpretation Code Description Data Source(s) Systolic blood pressure 134 mm[Hg] 134 mm[Hg] [facility] ([facility]) Diastolic blood pressure 84 mm[Hg] 84 mm[Hg] [facility] ([facility]) Body mass index (BMI) [Ratio] 30.0 kg/m2 30.0 k g/m2 [facility] ([facility]) Systolic blood pressure 148 mm[Hg] 148 mm[Hg] [facility] ([facility]) Diastolic blood pressure 88 mm[Hg] 88 mm[Hg] [facility] ([facility]) Heart rate 95 /min 95 /min [facility] ([facility]) Body height 68.25 [in_i] 68.25 [in_i] [facility] ([facility]) 5'8.25" Body weight 199.00 [lb_av] 199.00 [lb_av] [facility] ([facility]) Oxygen saturation in Arterial blood by Pulse oximetry 95 % 95 % [facility] ([facility]) Systolic blood pressure 144 mm[Hg] 144 mm[Hg] [facility] ([facility]) Heart rate 84 /min 84 /min [facility] ([facility]) Diastolic blood pressure 80 mm[Hg] 80 mm[Hg] [facility] ([facility]) Body height 68.25 [in_i] 68.25 [in_i] [facility] ([facility]) 5'8.25" Body mass index (BMI) [Ratio] 30.8 kg/m2 30.8 k g/m2 [facility] ([facility]) Body weight 204.00 [lb_av] 204.00 [lb_av] [facility] ([facility])
[2020-12-31 15:55] LABS: ALBUMIN 3.2 GM/DL (3.2-5.2); ALT/SGPT 56 U/L (12-78); BILIRUBIN,DIRECT 0.5 MG/DL (0.0-0.2); BILIRUBIN,TOTAL 1.5 MG/DL (0.2-1.0); BLOOD UREA NITROGEN 16 MG/DL (7-18); CARBON DIOXIDE LEVEL 26 MEQ/L (21-32); CHLORIDE LEVEL 104 MEQ/L (98-107); CK-MB VALUE MASS 3.4 NG/ML (<3.6); CPK CREATINE PHOSPHOKINASE 69 U/L (39-308); CREATININE FOR GFR 1.27 MG/DL (0.70-1.30); ETHYL ALCOHOL (ETHANOL) < 0.003 % (0.000-0.010); GLOMERULAR FILTRATION RATE > 60.0 (>49); GLUCOSE, FASTING 133 MG/DL (70-100); MAGNESIUM LEVEL 1.7 MG/DL (1.8-2.4); MB/CK RELATIVE INDEX 4.93 (< OR =4); POTASSIUM SERUM 3.7 MEQ/L (3.5-5.1); SODIUM LEVEL 137 MEQ/L (136-145); TOTAL PROTEIN 7.4 GM/DL (6.4-8.2); TROPONIN I 0.33 NG/ML (< 0.10)
--- NOTE | 2020-12-31 16:03 | REPVR ---
PROCEDURE INFORMATION: Exam: CT Head Without Contrast Exam date and time: 12/31/2020 3:08 PM Age: 65 years old Clinical indication: Syncope and collapse TECHNIQUE: Imaging protocol: Computed tomography of the head without contrast. Radiation optimization: All CT scans at this facility use at least one of these dose optimization techniques: automated exposure control; mA and/or kV adjustment per patient size (includes targeted exams where dose is matched to clinical indication); or iterative reconstruction. COMPARISON: CT Head without contrast 02/12/2020 2:27 PM FINDINGS: Brain: There are low-density subdural fluid collections around the cerebral convexities, measuring 6 mm on the right and 5 mm on the left. These are new since the prior exam and could represent chronic subdural hematomas, subdural hygromas, or subdural empyemas. Clinical correlation is recommended. There is no acute intracranial hemorrhage, acute infarct, or cerebral edema. Cerebral ventricles: No hydrocephalus. Paranasal sinuses: Marked mucosal thickening is present in the left sphenoid sinus. Mastoid air cells: Visualized mastoid air cells are well aerated. Orbital cavity: Unremarkable as visualized. Bones/joints: No acute fracture. Soft tissues: Unremarkable. IMPRESSION: There are low-density subdural fluid collections around the cerebral convexities, measuring 6 mm on the right and 5 mm on the left. These are new since the prior exam and could represent chronic subdural hematomas, subdural hygromas, or subdural empyemas. Clinical correlation is recommended. Electronically signed by: Jesus Corona On 12/31/2020 16:02:42 PM
--- NOTE | 2020-12-31 16:12 | REPVR ---
PROCEDURE INFORMATION: Exam: CT Cervical Spine Without Contrast Exam date and time: 12/31/2020 3:08 PM Age: 65 years old Clinical indication: Other: Syncope TECHNIQUE: Imaging protocol: Computed tomography images of the cervical spine without contrast. Radiation optimization: All CT scans at this facility use at least one of these dose optimization techniques: automated exposure control; mA and/or kV adjustment per patient size (includes targeted exams where dose is matched to clinical indication); or iterative reconstruction. COMPARISON: CT Head without contrast 02/12/2020 2:27 PM FINDINGS: Bones/joints: Extensive fusion or ankylosis of the cervical and upper thoracic spine is present. No acute fracture is identified. Discs/Spinal canal/Neural foramina: . There is no severe spinal canal stenosis. Lymph nodes: Numerous small and mildly enlarged bilateral cervical and supraclavicular lymph nodes are present. Further evaluation is recommended. Lungs: Lung apices are clear. Soft tissues: Unremarkable. IMPRESSION: 1. No acute fracture 2. 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 Cervical lymphadenopathy. Further evaluation is recommended. Electronically signed by: Jesus Corona On 12/31/2020 16:11:37 PM
[2020-12-31 16:24] LABS: INR 1.07; PARTIAL THROMBOPLASTIN TIME 27.6 SECONDS (25.9-37.0); PROTHROMBIN TIME 14.3 SECONDS (12.7-14.5)
[2020-12-31] MEDS ORDERED: MAG SULF 1GM/100ML (MAG RUN) 1 GM in IV 1 EA IV ONE (17:15)
[2020-12-31 18:36] VITALS: BP 159/92
--- NOTE | 2021-01-01 06:52 | ECGEPIP ---
[facility] - ED Test Date: 2020-12-31 Pat Name: YA RICE Department: Room: - Gender: Male Supervisor Finishing: RANDY : 1955 Requested By: JOSE COLEMAN Order Number: [id number] Reading MD: Jose Koenig Measurements Intervals Ennice Rate: 112 P: 31 AL: 164 QRS: -20 QRSD: 96 T: 35 QT: 336 QTc: 458 Interpretive Statements Sinus tachycardia Incomplete right bundle branch block Inferior infarct , age undetermined Cannot rule out Anterior infarct , age undetermined Nonspecific ST-T wave abnormalities Similar to tracing done 04-28-20 Electronically Signed on 01-01-2021 6:51:56 EDT by Jose Koenig
== END 2020-12-31 18:40 | disposition short-term general hospital (02) ==
LOC: M ED 14:16 → EDBD 14:16 → EDSEX 14:16 → M ED 18:40
DX: I62.03 Nontraumatic chronic subdural hemorrhage (principal); E83.42 Hypomagnesemia; I10 Essential (primary) hypertension; Z79.899 Other long term (current) drug therapy; Z88.0 Allergy status to penicillin; F17.210 Nicotine dependence, cigarettes, uncomplicated
CPT/HCPCS: 70450; 71045; 72125; 80048; 80076; 82077; 82140; 82550; 82553; 82803; 83605; 83735; 84443; 85025; 85610; 85730; 87040; 87798; 93005; 93041; 96365; 99285; J3475

== ENCOUNTER → 2021-02-11 | Outpatient (CLI) | payer BC | LOC: M LAB 09:46 | PROVIDERS: ATTEND Physician Assistant Medical | DX: I82.401 Acute embolism and thrombosis of unspecified deep veins of right lower extremity (principal) ==

== ENCOUNTER 2021-04-22 20:36 | Emergency (ER) | payer BC, MEDICARE ==
[~2021-04-22] VITALS: Ht 175.3 cm; Wt 88.6 kg
[2021-04-22] MEDS ORDERED: ELIQ5TAB (20:46)
[2021-04-22] MEDS ORDERED: NITROGLYCERIN 0.4 MG SUBL TABLET SL PRN (21:55)
[2021-04-22 22:15] LABS: BASO % 0.5 % (0.0-1.0); EOS # 0.1 10^3/uL (0.0-0.5); EOS % 1.5 % (0.0-3.0); HEMATOCRIT 39.9 % (42.0-52.0); LYMPH # 1.5 10^3/uL (1.5-5.0); LYMPH % 23.4 % (24.0-44.0); MEAN CORPUSCULAR HEMOGLOBIN 27.9 pg (27.0-33.0); MEAN CORPUSCULAR HGB CONC 32.6 g/dl (32.0-36.5); MEAN CORPUSCULAR VOLUME 85.6 fl (80.0-96.0); MONO # 0.5 10^3/uL (0.0-0.8); MONO % 8.2 % (2.0-8.0); NEUTROPHILS # 4.3 10^3/uL (1.5-8.5); NEUTROPHILS % 65.9 % (36.0-66.0); PLATELET COUNT, AUTOMATED 233 10^3/uL (150-450); RED BLOOD COUNT 4.66 10^6/uL (4.30-6.10); WHITE BLOOD COUNT 6.5 10^3/uL (4.0-10.0)
[2021-04-22 22:26] LABS: INR 1.01; PROTHROMBIN TIME 13.7 SECONDS (12.7-14.5)
[2021-04-22 22:46] LABS: CK-MB VALUE MASS 4.7 NG/ML (<3.6); MB/CK RELATIVE INDEX 2.63 (< OR =4)
[2021-04-22 22:54] LABS: ALBUMIN 3.5 GM/DL (3.2-5.2); ALT/SGPT 58 U/L (12-78); BILIRUBIN,DIRECT 0.3 MG/DL (0.0-0.2); BILIRUBIN,TOTAL 0.8 MG/DL (0.2-1.0); BLOOD UREA NITROGEN 15 MG/DL (7-18); CALCIUM LEVEL 9.4 MG/DL (8.8-10.2); CARBON DIOXIDE LEVEL 29 MEQ/L (21-32); CHLORIDE LEVEL 103 MEQ/L (98-107); CREATININE FOR GFR 1.22 MG/DL (0.70-1.30); FREE T4 1.02 NG/DL (0.76-1.46); GLOMERULAR FILTRATION RATE > 60.0 (>49); GLUCOSE, FASTING 140 MG/DL (70-100); LIPASE 166 U/L (73-393); POTASSIUM SERUM 4.7 MEQ/L (3.5-5.1); SODIUM LEVEL 138 MEQ/L (136-145); TOTAL PROTEIN 7.6 GM/DL (6.4-8.2)
[2021-04-22] MEDS ORDERED: ISOVUE-370 76% 100ML VIAL As Ordered ONE (23:06)
[2021-04-22 23:45] LABS: CK-MB VALUE MASS 4.5 NG/ML (<3.6); MB/CK RELATIVE INDEX 2.69 (< OR =4)
[2021-04-23 01:40] LABS: MB/CK RELATIVE INDEX 2.94 (< OR =4)
[2021-04-23 01:51] VITALS: BP 127/69
== END 2021-04-23 02:11 | disposition home or self-care (01) ==
LOC: M ED 20:36
DX: R07.89 Other chest pain (principal); R11.0 Nausea; R91.8 Other nonspecific abnormal finding of lung field; R00.1 Bradycardia, unspecified; I10 Essential (primary) hypertension; R42 Dizziness and giddiness; Z86.718 Personal history of other venous thrombosis and embolism; Z86.79 Personal history of other diseases of the circulatory system; F17.200 Nicotine dependence, unspecified, uncomplicated; Z88.0 Allergy status to penicillin; Z79.899 Other long term (current) drug therapy; Z79.01 Long term (current) use of anticoagulants
CPT/HCPCS: 36415; 71046; 71275; 80048; 80076; 82550; 82553; 83690; 84439; 84443; 85025; 85610; 85730; 93005; 93041; 94760; 99285; Q9967

== ENCOUNTER → 2021-09-20 | Outpatient (CLI) | payer MEDICARE ==
[~2021-09-20] MED LIST changes: +ELIQ5TAB; +LABE200T3 PO; -LABE200T32 PO
[2021-09-20 10:50] LABS: BASO % 0.5 % (0.0-1.0); EOS # 0.2 10^3/uL (0.0-0.5); EOS % 3.1 % (0.0-3.0); HEMATOCRIT 42.4 % (42.0-52.0); HEMOGLOBIN 14.2 g/dl (13.5-17.5); LYMPH # 1.9 10^3/uL (1.5-5.0); MEAN CORPUSCULAR HEMOGLOBIN 28.7 pg (27.0-33.0); MEAN CORPUSCULAR HGB CONC 33.5 g/dl (32.0-36.5); MEAN CORPUSCULAR VOLUME 85.8 fl (80.0-96.0); MONO # 0.7 10^3/uL (0.0-0.8); MONO % 10.7 % (2.0-8.0); NEUTROPHILS # 3.4 10^3/uL (1.5-8.5); NEUTROPHILS % 55.2 % (36.0-66.0); PLATELET COUNT, AUTOMATED 227 10^3/uL (150-450); RED BLOOD COUNT 4.94 10^6/uL (4.30-6.10); WHITE BLOOD COUNT 6.2 10^3/uL (4.0-10.0)
[2021-09-20 11:23] LABS: ALBUMIN 3.6 GM/DL (3.2-5.2); ALT/SGPT 45 U/L (12-78); BLOOD UREA NITROGEN 13 MG/DL (7-18); CALCIUM LEVEL 9.6 MG/DL (8.8-10.2); CARBON DIOXIDE LEVEL 27 MEQ/L (21-32); CHLORIDE LEVEL 106 MEQ/L (98-107); CREATININE FOR GFR 1.12 MG/DL (0.70-1.30); GLOMERULAR FILTRATION RATE > 60.0 (>49); GLUCOSE, FASTING 132 MG/DL (70-100); LDH LACTATE DEHYDROGENASE 177 U/L (87-241); SODIUM LEVEL 136 MEQ/L (136-145)
== END ==
LOC: M LAB 09:45
PROVIDERS: ATTEND Nurse Practitioner Family
DX: C83.00 Small cell B-cell lymphoma, unspecified site (principal)

== ENCOUNTER → 2021-09-21 | Outpatient (CLI) | payer MEDICARE ==
[~2021-09-21] MED LIST changes: +GASTROGRAFIN SOLUTION 30ML (Q9963) As Ordered ONE; +ISOVUE-370 76% 100ML VIAL As Ordered ONE
== END ==
LOC: M RAD 13:27
PROVIDERS: ATTEND Nurse Practitioner Family
DX: C83.00 Small cell B-cell lymphoma, unspecified site (principal)
CPT/HCPCS: 70491; 71260; 74177; Q9963; Q9967

== ENCOUNTER 2023-10-31 13:44 | Inpatient (IN) | payer MEDICARE ==
[~2023-10-31] VITALS: Ht 175.3 cm; Wt 93.2 kg
[~2023-10-31 13:44] MED LIST changes: +ATOR1TAB21; +GABA-1171 PO; -GASTROGRAFIN SOLUTION 30ML (Q9963) As Ordered ONE; -ISOVUE-370 76% 100ML VIAL As Ordered ONE; -LABE200T3 PO; +LABE200T5 PO; +MECL-209 PO; -MECL1TAB31 PO
[2023-10-31 15:46] LABS: BASO % 0.5 % (0.0-1.0); EOS # 0.1 10^3/uL (0.0-0.5); EOS % 1.4 % (0.0-3.0); HEMATOCRIT 45.6 % (42.0-52.0); HEMOGLOBIN 15.8 g/dl (13.5-17.5); LYMPH # 1.4 10^3/uL (1.5-5.0); LYMPH % 17.9 % (24.0-44.0); MEAN CORPUSCULAR HEMOGLOBIN 29.2 pg (27.0-33.0); MEAN CORPUSCULAR HGB CONC 34.6 g/dl (32.0-36.5); MEAN CORPUSCULAR VOLUME 84.3 fl (80.0-96.0); MONO # 0.6 10^3/uL (0.0-0.8); MONO % 8.2 % (2.0-8.0); NEUTROPHILS # 5.5 10^3/uL (1.5-8.5); NEUTROPHILS % 71.2 % (36.0-66.0); PLATELET COUNT, AUTOMATED 189 10^3/uL (150-450); RED BLOOD COUNT 5.41 10^6/uL (4.30-6.10); WHITE BLOOD COUNT 7.8 10^3/uL (4.0-10.0)
[2023-10-31] MEDS ORDERED: ISOVUE-370 76% 100ML VIAL As Ordered ONE (16:10)
[2023-10-31 16:18] LABS: ALBUMIN 3.8 G/DL (3.2-5.2); ALKALINE PHOSPHATASE 131 U/L (46-116); ALT/SGPT 28 U/L (7.0-40); AST/SGOT 21 U/L (<34); BILIRUBIN,DIRECT 0.4 MG/DL (<0.4); BILIRUBIN,TOTAL 1.2 MG/DL (0.3-1.2); BLOOD UREA NITROGEN 9 MG/DL (9-23); CALCIUM LEVEL 9.4 MG/DL (8.3-10.6); CARBON DIOXIDE LEVEL 27 MMOL/L (20-31); CHLORIDE LEVEL 101 MMOL/L (98-107); CK-MB VALUE MASS 3.9 NG/ML (<3.6); GLOMERULAR FILTRATION RATE > 60.0 (>49); GLUCOSE, FASTING 152 MG/DL (74-106); MAGNESIUM LEVEL 1.8 MG/DL (1.8-2.4); POTASSIUM SERUM 3.5 MMOL/L (3.5-5.1); SODIUM LEVEL 133 MMOL/L (136-145); TOTAL PROTEIN 6.5 G/DL (5.7-8.2)
[2023-10-31 16:20] LABS: THYROID STIMULATING HORMONE 1.437 uIU/ML (0.55-4.78)
[2023-10-31 16:23] LABS: CPK CREATINE PHOSPHOKINASE 77 U/L (46-171); MB/CK RELATIVE INDEX 5.06 (< OR =4)
[2023-10-31] MEDS: MORPHINE 2 MG/ML 1ML VIAL IV PRN (16:52)
[2023-10-31 16:53] VITALS: BP 142/69; O2SAT 98
[2023-10-31] MEDS: MECLIZINE 25 MG TABLET PO ONE (18:36)
[2023-10-31] MEDS: ONDANSETRON 4MG 2ML VIAL IV ONE (18:37)
[2023-10-31] MEDS: diazePAM 10MG/2ML SYRINGE IV ONE (18:37)
[2023-11-01] MEDS ORDERED: MOM 30ML SUSPENSION UDC PO PRN (00:35)
[2023-11-01] MEDS ORDERED: ACETAMINOPHEN TAB 650MG DOSE (2X325MG) PO PRN (00:35)
[2023-11-01] MEDS ORDERED: ATOR1TAB21 PO (02:08)
[2023-11-01] MEDS ORDERED: LABE200T5 PO (02:08)
[2023-11-01] MEDS ORDERED: CHLO125TA PO (02:08)
[2023-11-01] MEDS ORDERED: ELIQ5TAB PO (02:08)
[2023-11-01] MEDS ORDERED: MED REC IN PROGRESS XX SCH (02:10)
[2023-11-01] MEDS: DOCUSATE SODIUM 100MG CAPSULE PO SCH (08:49)
[2023-11-01] MEDS ORDERED: ATORVASTATIN 20 MG TAB PO SCH (09:00)
[2023-11-01] MEDS ORDERED: HOME MED LIST COMPLETE! XX SCH (09:15)
[2023-11-01] MEDS ORDERED: PROHANCE 279.3MG/ML 5ML VIAL As Ordered ONE (10:01)
[2023-11-01] MEDS ORDERED: PROHANCE 279.3MG/ML 15ML VIAL As Ordered ONE (10:01)
[2023-11-01 12:18] VITALS: BP 152/84; TEMP 96.8; O2SAT 98
== END 2023-11-01 12:45 | disposition home or self-care (01) | DRG 149 ==
LOC: M ED 13:44 → M ED INP 11-01 00:35
PROVIDERS: ADMIT Student in an Organized Health Care Education/Training Program; ATTEND Internal Medicine
DX: R42 Dizziness and giddiness (principal); I62.03 Nontraumatic chronic subdural hemorrhage; C83.00 Small cell B-cell lymphoma, unspecified site; I10 Essential (primary) hypertension; M45.9 Ankylosing spondylitis of unspecified sites in spine; E78.5 Hyperlipidemia, unspecified; Z86.711 Personal history of pulmonary embolism; Z86.718 Personal history of other venous thrombosis and embolism; Z79.01 Long term (current) use of anticoagulants; Z79.899 Other long term (current) drug therapy; Z88.0 Allergy status to penicillin

== ENCOUNTER 2023-11-30 07:16 | Emergency (ER) | payer MEDICARE ==
[~2023-11-30] VITALS: Ht 175.3 cm; Wt 90.9 kg
[~2023-11-30 07:16] MED LIST changes: +ATOR1TAB21 PO; +ELIQ5TAB PO
[2023-11-30] MEDS ORDERED: ISOVUE-370 76% 100ML VIAL As Ordered ONE (07:40)
[2023-11-30 08:21] LABS: BASO % 0.4 % (0.0-1.0); EOS # 0.1 10^3/uL (0.0-0.5); EOS % 1.8 % (0.0-3.0); HEMATOCRIT 43.4 % (42.0-52.0); HEMOGLOBIN 14.8 g/dl (13.5-17.5); LYMPH # 1.5 10^3/uL (1.5-5.0); MEAN CORPUSCULAR HEMOGLOBIN 29.2 pg (27.0-33.0); MEAN CORPUSCULAR HGB CONC 34.1 g/dl (32.0-36.5); MEAN CORPUSCULAR VOLUME 85.8 fl (80.0-96.0); MONO # 0.6 10^3/uL (0.0-0.8); MONO % 8.5 % (2.0-8.0); NEUTROPHILS # 4.6 10^3/uL (1.5-8.5); NEUTROPHILS % 66.9 % (36.0-66.0); PLATELET COUNT, AUTOMATED 160 10^3/uL (150-450); RED BLOOD COUNT 5.06 10^6/uL (4.30-6.10); WHITE BLOOD COUNT 6.9 10^3/uL (4.0-10.0)
[2023-11-30 08:32] LABS: INR 1.09; PARTIAL THROMBOPLASTIN TIME 28.3 SECONDS (24.8-34.2); PROTHROMBIN TIME 13.8 SECONDS (12.5-14.5)
[2023-11-30 08:40] LABS: BLOOD UREA NITROGEN 13 MG/DL (9-23); CALCIUM LEVEL 9.3 MG/DL (8.3-10.6); CARBON DIOXIDE LEVEL 29 MMOL/L (20-31); CHLORIDE LEVEL 105 MMOL/L (98-107); CREATININE FOR GFR 1.11 MG/DL (0.70-1.30); GLOMERULAR FILTRATION RATE > 60.0 (>49); GLUCOSE, FASTING 170 MG/DL (74-106); POTASSIUM SERUM 3.7 MMOL/L (3.5-5.1); SODIUM LEVEL 138 MMOL/L (136-145)
[2023-11-30 08:44] LABS: FREE T4 1.19 NG/DL (0.89-1.76)
[2023-11-30 08:45] LABS: THYROID STIMULATING HORMONE 1.979 uIU/ML (0.55-4.78)
[2023-11-30 08:52] LABS: CPK CREATINE PHOSPHOKINASE 82 U/L (46-171); MB/CK RELATIVE INDEX 1.21 (< OR =4)
[2023-11-30] MEDS: MECLIZINE 25 MG TABLET PO ONE (08:58)
[2023-11-30 09:45] LABS: CK-MB VALUE MASS 1.8 NG/ML (<3.6)
[2023-11-30 09:46] LABS: MB/CK RELATIVE INDEX 2.16 (< OR =4)
[2023-11-30] MEDS: LORazepam 1 MG TAB PO STA (09:54)
[2023-11-30] MEDS: NS 1,000 ML IV ONE (09:54)
[2023-11-30] MEDS ORDERED: PROHANCE 279.3MG/ML 15ML VIAL As Ordered ONE (10:25)
[2023-11-30] MEDS ORDERED: PROHANCE 279.3MG/ML 5ML VIAL As Ordered ONE (10:25)
[2023-11-30 12:14] LABS: CK-MB VALUE MASS 1.6 NG/ML (<3.6)
[2023-11-30 12:29] LABS: MB/CK RELATIVE INDEX 1.6 (< OR =4)
[2023-11-30] MEDS ORDERED: MECL-209 PO (14:56)
[2023-11-30 15:19] VITALS: BP 144/64; TEMP 98.2; O2SAT 97
== END 2023-11-30 15:27 | disposition home or self-care (01) ==
LOC: M ED 07:16
DX: R42 Dizziness and giddiness (principal); I62.03 Nontraumatic chronic subdural hemorrhage; I45.10 Unspecified right bundle-branch block; R00.1 Bradycardia, unspecified; I10 Essential (primary) hypertension; E78.5 Hyperlipidemia, unspecified; F10.10 Alcohol abuse, uncomplicated; Z88.0 Allergy status to penicillin; Z79.01 Long term (current) use of anticoagulants; Z79.899 Other long term (current) drug therapy
CPT/HCPCS: 36415; 70450; 70496; 70498; 70553; 71045; 80047; 80048; 82550; 82553; 83880; 84439; 84443; 84484; 85025; 85610; 85730; 87486; 87581; 87633; 87798; 93005; 93041; 94760; 99285; A9576; Q9967

== ENCOUNTER 2023-12-31 06:00 | Emergency (ER) | payer MEDICARE ==
[~2023-12-31] VITALS: Ht 175.3 cm; Wt 93.2 kg
[2023-12-31 06:59] LABS: ALBUMIN 3.7 G/DL (3.2-5.2); ALKALINE PHOSPHATASE 146 U/L (46-116); ALT/SGPT 32 U/L (7.0-40); AST/SGOT 22 U/L (<34); BILIRUBIN,TOTAL 1.1 MG/DL (0.3-1.2); BLOOD UREA NITROGEN 10 MG/DL (9-23); CALCIUM LEVEL 10.6 MG/DL (8.3-10.6); CARBON DIOXIDE LEVEL 28 MMOL/L (20-31); CHLORIDE LEVEL 108 MMOL/L (98-107); CREATININE FOR GFR 1.01 MG/DL (0.70-1.30); GLOMERULAR FILTRATION RATE > 60.0 (>49); GLUCOSE, FASTING 179 MG/DL (74-106); POTASSIUM SERUM 4.3 MMOL/L (3.5-5.1); SODIUM LEVEL 141 MMOL/L (136-145); TOTAL PROTEIN 6.3 G/DL (5.7-8.2)
[2023-12-31 07:02] LABS: BASO % 0.5 % (0.0-1.0); EOS # 0.1 10^3/uL (0.0-0.5); EOS % 1.9 % (0.0-3.0); HEMATOCRIT 43.1 % (42.0-52.0); HEMOGLOBIN 14.2 g/dl (13.5-17.5); LYMPH # 1.8 10^3/uL (1.5-5.0); MEAN CORPUSCULAR HEMOGLOBIN 28.9 pg (27.0-33.0); MEAN CORPUSCULAR HGB CONC 32.9 g/dl (32.0-36.5); MEAN CORPUSCULAR VOLUME 87.6 fl (80.0-96.0); MONO # 0.7 10^3/uL (0.0-0.8); MONO % 11.2 % (2.0-8.0); NEUTROPHILS # 3.7 10^3/uL (1.5-8.5); NEUTROPHILS % 57.6 % (36.0-66.0); PLATELET COUNT, AUTOMATED 185 10^3/uL (150-450); RED BLOOD COUNT 4.92 10^6/uL (4.30-6.10); WHITE BLOOD COUNT 6.4 10^3/uL (4.0-10.0)
[2023-12-31] MEDS ORDERED: MECL-86 PO (08:37)
[2023-12-31] MEDS ORDERED: HOME MED LIST COMPLETE! XX SCH (08:40)
[2023-12-31 09:25] LABS: CK-MB VALUE MASS < 1.0 NG/ML (<3.6)
[2023-12-31 09:26] LABS: CPK CREATINE PHOSPHOKINASE 52 U/L (46-171); MB/CK RELATIVE INDEX 1.92 (< OR =4)
[2023-12-31] MEDS: MECLIZINE 25 MG TABLET PO ONE (09:43)
[2023-12-31 09:57] LABS: CK-MB VALUE MASS 1.4 NG/ML (<3.6)
[2023-12-31 10:00] LABS: MB/CK RELATIVE INDEX 2.41 (< OR =4)
[2023-12-31] MEDS: LORazepam 2 MG/ML 1ML VIAL IV STA (10:26)
[2023-12-31 11:27] LABS: CK-MB VALUE MASS 1.2 NG/ML (<3.6)
[2023-12-31 11:32] LABS: MB/CK RELATIVE INDEX 2.03 (< OR =4)
[2023-12-31] MEDS: NS 500 ML IV ONE (11:36)
[2023-12-31 12:07] VITALS: O2SAT 98
[2023-12-31 13:06] VITALS: BP 150/70; TEMP 97.6
== END 2023-12-31 13:12 | disposition home or self-care (01) ==
LOC: M ED 06:00
DX: H81.4 Vertigo of central origin (principal); I95.1 Orthostatic hypotension; I44.4 Left anterior fascicular block; I45.10 Unspecified right bundle-branch block; I10 Essential (primary) hypertension; E78.5 Hyperlipidemia, unspecified; Z88.0 Allergy status to penicillin; Z79.01 Long term (current) use of anticoagulants; Z79.899 Other long term (current) drug therapy
CPT/HCPCS: 70450; 70544; 70551; 71046; 80053; 82550; 82553; 84484; 85025; 93005; 93041; 94760; 96361; 96374; 99285; J2060

== ENCOUNTER 2024-01-10 18:37 | Observation (INO) | payer MEDICARE ==
[~2024-01-10] VITALS: Ht 175.3 cm; Wt 93.2 kg
[~2024-01-10 18:37] MED LIST changes: +MECL-86 PO
[2024-01-10] MEDS ORDERED: ISOVUE-370 76% 100ML VIAL As Ordered ONE (18:51)
[2024-01-10 19:08] LABS: BASO % 0.5 % (0.0-1.0); EOS # 0.1 10^3/uL (0.0-0.5); EOS % 2.2 % (0.0-3.0); HEMATOCRIT 40.2 % (42.0-52.0); HEMOGLOBIN 13.9 g/dl (13.5-17.5); LYMPH # 1.8 10^3/uL (1.5-5.0); LYMPH % 28.8 % (24.0-44.0); MEAN CORPUSCULAR HEMOGLOBIN 29.6 pg (27.0-33.0); MEAN CORPUSCULAR HGB CONC 34.6 g/dl (32.0-36.5); MEAN CORPUSCULAR VOLUME 85.5 fl (80.0-96.0); MONO # 0.7 10^3/uL (0.0-0.8); MONO % 11.4 % (2.0-8.0); NEUTROPHILS # 3.5 10^3/uL (1.5-8.5); NEUTROPHILS % 56.5 % (36.0-66.0); PLATELET COUNT, AUTOMATED 174 10^3/uL (150-450); WHITE BLOOD COUNT 6.2 10^3/uL (4.0-10.0)
[2024-01-10] MEDS: ONDANSETRON 4MG 2ML VIAL IV ONE ×2 (19:14→20:52)
[2024-01-10 19:22] LABS: PROTHROMBIN TIME 13.5 SECONDS (12.5-14.5)
[2024-01-10 19:29] LABS: CK-MB VALUE MASS 2.6 NG/ML (<3.6)
[2024-01-10 19:30] LABS: BLOOD UREA NITROGEN 13 MG/DL (9-23); CARBON DIOXIDE LEVEL 25 MMOL/L (20-31); CHLORIDE LEVEL 100 MMOL/L (98-107); CPK CREATINE PHOSPHOKINASE 76 U/L (46-171); CREATININE FOR GFR 0.94 MG/DL (0.70-1.30); GLOMERULAR FILTRATION RATE > 60.0 (>49); GLUCOSE, FASTING 144 MG/DL (74-106); MB/CK RELATIVE INDEX 3.42 (< OR =4); POTASSIUM SERUM 3.5 MMOL/L (3.5-5.1); SODIUM LEVEL 134 MMOL/L (136-145)
[2024-01-10] MEDS: MECLIZINE 25 MG TABLET PO ONE (20:00)
[2024-01-10] MEDS ORDERED: HOME MED LIST COMPLETE! XX SCH (20:25)
[2024-01-10 20:49] LABS: CK-MB VALUE MASS 2.8 NG/ML (<3.6); MB/CK RELATIVE INDEX 3.88 (< OR =4)
[2024-01-10 21:00] VITALS: BP 127/87
[2024-01-10] MEDS: LABETALOL 200 MG TAB PO SCH (21:00)
[2024-01-10] MEDS: diazePAM 10MG/2ML SYRINGE IV ONE (21:15)
[2024-01-10] MEDS: NS 500 ML IV ONE (22:36)
[2024-01-10] MEDS ORDERED: ACETAMINOPHEN 325 MG TAB PO PRN (23:35)
[2024-01-10] MEDS ORDERED: MOM 30ML SUSPENSION UDC PO PRN (23:35)
[2024-01-11 01:06] LABS: HEMATOCRIT 40.3 % (42.0-52.0); HEMOGLOBIN 13.8 g/dl (13.5-17.5); MEAN CORPUSCULAR HGB CONC 34.2 g/dl (32.0-36.5); MEAN CORPUSCULAR VOLUME 84.7 fl (80.0-96.0); PLATELET COUNT, AUTOMATED 172 10^3/uL (150-450); RED BLOOD COUNT 4.76 10^6/uL (4.30-6.10); WHITE BLOOD COUNT 7.9 10^3/uL (4.0-10.0)
[2024-01-11] MEDS: ONDANSETRON 4MG 2ML VIAL IV SCH (01:28)
[2024-01-11] MEDS: MECLIZINE 25 MG TABLET PO ONE (01:28)
[2024-01-11] MEDS: APIXABAN 5 MG TAB (ELIQUIS) PO SCH (01:28)
[2024-01-11] MEDS: SCOPOLAMINE 1MG TRANSDERMAL PATCH TOP SCH (01:29)
[2024-01-11] MEDS: DOCUSATE SODIUM 100MG CAPSULE PO SCH (01:29)
[2024-01-11 07:34] LABS: HEMOGLOBIN 14.2 g/dl (13.5-17.5); MEAN CORPUSCULAR HEMOGLOBIN 29.1 pg (27.0-33.0); MEAN CORPUSCULAR HGB CONC 33.8 g/dl (32.0-36.5); MEAN CORPUSCULAR VOLUME 86.1 fl (80.0-96.0); PLATELET COUNT, AUTOMATED 166 10^3/uL (150-450); RED BLOOD COUNT 4.88 10^6/uL (4.30-6.10); WHITE BLOOD COUNT 7.4 10^3/uL (4.0-10.0)
[2024-01-11 08:09] LABS: BLOOD UREA NITROGEN 11 MG/DL (9-23); CALCIUM LEVEL 9.8 MG/DL (8.3-10.6); CARBON DIOXIDE LEVEL 29 MMOL/L (20-31); CHLORIDE LEVEL 105 MMOL/L (98-107); CREATININE FOR GFR 0.92 MG/DL (0.70-1.30); GLOMERULAR FILTRATION RATE > 60.0 (>49); GLUCOSE, FASTING 118 MG/DL (74-106); POTASSIUM SERUM 3.6 MMOL/L (3.5-5.1); SODIUM LEVEL 137 MMOL/L (136-145)
[2024-01-11] MEDS: ATORVASTATIN 20 MG TAB PO SCH (08:54)
[2024-01-11] MEDS: CARBAMIDE PEROXIDE 6.5% OTIC SOLN 15ML AU SCH (10:32)
[2024-01-11] MEDS ORDERED: TRAN1DIS4 TOP (13:48)
[2024-01-11] MEDS ORDERED: CARBOT AU (13:48)
[2024-01-11 16:18] VITALS: BP 137/69; TEMP 98.2; O2SAT 96
== END 2024-01-11 16:38 | disposition home or self-care (01) ==
LOC: EDBD 18:37 → M ED 18:37 → M ED INP 18:38 → UNDOADMOB 23:32
PROVIDERS: ADMIT Student in an Organized Health Care Education/Training Program; ATTEND Student in an Organized Health Care Education/Training Program
DX: R42 Dizziness and giddiness (principal); R11.2 Nausea with vomiting, unspecified; H61.22 Impacted cerumen, left ear; C91.10 Chronic lymphocytic leukemia of B-cell type not having achieved remission; Z87.820 Personal history of traumatic brain injury; I10 Essential (primary) hypertension; E78.5 Hyperlipidemia, unspecified; Z86.718 Personal history of other venous thrombosis and embolism; Z86.711 Personal history of pulmonary embolism; M45.9 Ankylosing spondylitis of unspecified sites in spine; G31.1 Senile degeneration of brain, not elsewhere classified; I67.82 Cerebral ischemia; Z88.0 Allergy status to penicillin; Z79.899 Other long term (current) drug therapy; Z79.01 Long term (current) use of anticoagulants
CPT/HCPCS: 36415; 70450; 70496; 70498; 71045; 80047; 80048; 82550; 82553; 84484; 85025; 85027; 85610; 85730; 86850; 86900; 86901; 93005; 93041; 94760; 96374; 96375; 96376; 97116; 97161; 99285; G0378; J2405; J3360; Q9967

== ENCOUNTER 2024-04-07 03:18 | Inpatient (IN) | payer MEDICARE ==
[~2024-04-07] VITALS: Ht 175.3 cm; Wt 92.9 kg
[~2024-04-07 03:18] MED LIST changes: +CARBOT AU; +TRAN1DIS4 TOP
[2024-04-07 04:43] LABS: BASO % 0.3 % (0.0-1.0); EOS % 0.2 % (0.0-3.0); HEMOGLOBIN 15.9 g/dl (13.5-17.5); LYMPH # 1.4 10^3/uL (1.5-5.0); LYMPH % 14.3 % (24.0-44.0); MEAN CORPUSCULAR HEMOGLOBIN 29.3 pg (27.0-33.0); MEAN CORPUSCULAR HGB CONC 34.6 g/dl (32.0-36.5); MEAN CORPUSCULAR VOLUME 84.7 fl (80.0-96.0); MONO # 0.6 10^3/uL (0.0-0.8); MONO % 6.4 % (2.0-8.0); NEUTROPHILS # 7.8 10^3/uL (1.5-8.5); NEUTROPHILS % 78.4 % (36.0-66.0); PLATELET COUNT, AUTOMATED 193 10^3/uL (150-450); RED BLOOD COUNT 5.43 10^6/uL (4.30-6.10)
[2024-04-07 05:01] LABS: LIPASE 27 U/L (12-53)
[2024-04-07 05:02] LABS: AMYLASE 50 U/L (30-118)
[2024-04-07 05:03] LABS: ALBUMIN 3.8 G/DL (3.2-5.2); ALKALINE PHOSPHATASE 144 U/L (40-129); ALT/SGPT 24 U/L (7.0-40); AST/SGOT 21 U/L (<34); BILIRUBIN,DIRECT 0.5 MG/DL (<0.4); BILIRUBIN,TOTAL 1.6 MG/DL (0.3-1.2); TOTAL PROTEIN 6.6 G/DL (5.7-8.2)
[2024-04-07] MEDS: ONDANSETRON 4MG 2ML VIAL IV ONE (06:20)
[2024-04-07] MEDS: MORPHINE 2 MG/ML 1ML VIAL IV ONE (06:20)
[2024-04-07 06:59] LABS: HEPATITIS B SURFACE ANTIGEN NEGATIVE (NEGATIVE)
[2024-04-07 07:20] LABS: HEPATITIS C VIRUS ABY INDEX < 0.02 INDEX (<0.8)
[2024-04-07 07:21] LABS: HEPATITIS B CORE ANTIBODY IGM NEGATIVE (NEGATIVE)
[2024-04-07 07:47] LABS: BLOOD UREA NITROGEN 25 MG/DL (9-23); CALCIUM LEVEL 9.9 MG/DL (8.3-10.6); CARBON DIOXIDE LEVEL 26 MMOL/L (20-31); CHLORIDE LEVEL 105 MMOL/L (98-107); CREATININE FOR GFR 1.03 MG/DL (0.70-1.30); GLOMERULAR FILTRATION RATE > 60.0 (>49); GLUCOSE, FASTING 160 MG/DL (74-106); POTASSIUM SERUM 3.5 MMOL/L (3.5-5.1); SODIUM LEVEL 140 MMOL/L (136-145)
[2024-04-07] MEDS ORDERED: ISOVUE-370 76% 100ML VIAL As Ordered ONE (07:51)
[2024-04-07] MEDS: MORPHINE 4 MG/ML 1ML VIAL IV PRN (08:26)
[2024-04-07 09:12] LABS: INR 1.19; PROTHROMBIN TIME 15.4 SECONDS (12.5-14.5)
[2024-04-07] MEDS ORDERED: HOME MED LIST COMPLETE! XX SCH (09:20)
[2024-04-07] MEDS: BISACODYL 10MG SUPP PR SCH (09:44)
[2024-04-07] MEDS ORDERED: KETOROLAC 30 MG/ML 1ML VIAL IV PRN (11:00)
[2024-04-07] MEDS ORDERED: NALOXONE INJ 0.4MG/1ML VIAL IV PRN (11:00)
[2024-04-07] MEDS ORDERED: MORPHINE 10 MG/ML 1ML VIAL IV PRN (11:00)
[2024-04-07] MEDS: SODIUM CHLORIDE 0.9% 1000 ML IV ONE (11:08)
[2024-04-07] MEDS: MORPHINE 4 MG/ML 1ML VIAL IV ONE (11:09)
[2024-04-07] MEDS: KETOROLAC 30 MG/ML 1ML VIAL IV ONE (11:09)
[2024-04-07] MEDS: D5W/0.45% SODIUM CHLORIDE 1,000 ML IV SCH (11:14)
[2024-04-07 12:00] VITALS: BP 126/72; TEMP 97.5; O2SAT 95
[2024-04-07] MEDS: ONDANSETRON 4MG 2ML VIAL IV PRN (12:11)
[2024-04-07 12:30] VITALS: BP 126/72
[2024-04-07] MEDS: ceFAZolin SOD 2 GM in IV 1 EA IV SCH (13:41)
[2024-04-07] MEDS: metroNIDAZOLE 500 MG in IV 1 EA IV SCH (14:32)
[2024-04-07 16:22] VITALS: BP 148/84; TEMP 98; O2SAT 93
[2024-04-07] MEDS: MULTIVITAMIN -ADULT INJECTION 10 ML, THIAMINE INJection 100 MG, FOLIC ACID 1 MG in NS (... IV ONE (16:41)
[2024-04-07] MEDS: KETOROLAC 30 MG/ML 1ML VIAL IV SCH (17:50)
[2024-04-07] MEDS: FOLIC ACID 1 MG in NS 50 ML IV SCH (17:51)
[2024-04-07 19:24] VITALS: BP 140/73; TEMP 98.2; O2SAT 93
[2024-04-08] VITALS (7 sets, daily range): BP systolic 127–163; BP diastolic 70–80; TEMP 97.3–98.9; O2SAT 91–95
[2024-04-08] MEDS ORDERED: LIDOCAINE 2% 100MG/5ML SDV (FOR ANES.) As Ordered ONE (07:39)
[2024-04-08] MEDS ORDERED: propofoL 200 MG/20 ML VIAL As Ordered ONE (07:39)
[2024-04-08 08:48] LABS: BASO % 0.4 % (0.0-1.0); EOS # 0.1 10^3/uL (0.0-0.5); EOS % 1.1 % (0.0-3.0); HEMOGLOBIN 14.2 g/dl (13.5-17.5); LYMPH # 1.3 10^3/uL (1.5-5.0); LYMPH % 14.4 % (24.0-44.0); MEAN CORPUSCULAR HEMOGLOBIN 29.5 pg (27.0-33.0); MEAN CORPUSCULAR VOLUME 89.2 fl (80.0-96.0); MONO % 10.5 % (2.0-8.0); NEUTROPHILS # 6.7 10^3/uL (1.5-8.5); NEUTROPHILS % 73.1 % (36.0-66.0); PLATELET COUNT, AUTOMATED 167 10^3/uL (150-450); RED BLOOD COUNT 4.82 10^6/uL (4.30-6.10); WHITE BLOOD COUNT 9.2 10^3/uL (4.0-10.0)
[2024-04-08] MEDS: MIRALAX *UNIT DOSE* 17GM PACKET PO SCH (09:16)
[2024-04-08] MEDS: THIAMINE 200MG 2ML VIAL IV SCH (09:16)
[2024-04-08 09:35] LABS: BLOOD UREA NITROGEN 25 MG/DL (9-23); CALCIUM LEVEL 7.9 MG/DL (8.3-10.6); CARBON DIOXIDE LEVEL 32 MMOL/L (20-31); CHLORIDE LEVEL 104 MMOL/L (98-107); CREATININE FOR GFR 1.09 MG/DL (0.70-1.30); GLOMERULAR FILTRATION RATE > 60.0 (>49); GLUCOSE, FASTING 126 MG/DL (74-106); POTASSIUM SERUM 3.8 MMOL/L (3.5-5.1); SODIUM LEVEL 141 MMOL/L (136-145)
[2024-04-09] VITALS (7 sets, daily range): BP systolic 139–142; BP diastolic 81–89; TEMP 97.2–97.9; O2SAT 94–96
[2024-04-09 08:22] LABS: BASO % 0.4 % (0.0-1.0); EOS # 0.1 10^3/uL (0.0-0.5); EOS % 1.7 % (0.0-3.0); HEMOGLOBIN 14.1 g/dl (13.5-17.5); LYMPH # 1.4 10^3/uL (1.5-5.0); LYMPH % 17.3 % (24.0-44.0); MEAN CORPUSCULAR HEMOGLOBIN 29.4 pg (27.0-33.0); MEAN CORPUSCULAR HGB CONC 33.6 g/dl (32.0-36.5); MEAN CORPUSCULAR VOLUME 87.5 fl (80.0-96.0); MONO # 0.9 10^3/uL (0.0-0.8); MONO % 10.7 % (2.0-8.0); NEUTROPHILS # 5.6 10^3/uL (1.5-8.5); NEUTROPHILS % 69.5 % (36.0-66.0); PLATELET COUNT, AUTOMATED 177 10^3/uL (150-450); WHITE BLOOD COUNT 8.1 10^3/uL (4.0-10.0)
[2024-04-09] MEDS: THIAMINE 100 MG TAB PO SCH (08:26)
[2024-04-09 08:51] LABS: BLOOD UREA NITROGEN 16 MG/DL (9-23); CARBON DIOXIDE LEVEL 30 MMOL/L (20-31); CHLORIDE LEVEL 103 MMOL/L (98-107); CREATININE FOR GFR 0.93 MG/DL (0.70-1.30); GLOMERULAR FILTRATION RATE > 60.0 (>49); GLUCOSE, FASTING 144 MG/DL (74-106); POTASSIUM SERUM 3.5 MMOL/L (3.5-5.1); SODIUM LEVEL 139 MMOL/L (136-145)
[2024-04-09] MEDS: SIMETHICONE 80MG CHEW TAB PO SCH (12:01)
[2024-04-09] MEDS: FOLIC ACID 1MG TAB PO SCH (12:01)
[2024-04-09] MEDS: KETOROLAC 30 MG/ML 1ML VIAL IV PRN (13:11)
[2024-04-10 05:14] VITALS: BP 137/81; TEMP 97.5; O2SAT 96
[2024-04-10 06:05] VITALS: BP 137/81
[2024-04-10 06:17] LABS: BASO % 0.4 % (0.0-1.0); EOS # 0.2 10^3/uL (0.0-0.5); EOS % 2.6 % (0.0-3.0); HEMATOCRIT 40.9 % (42.0-52.0); HEMOGLOBIN 13.8 g/dl (13.5-17.5); LYMPH # 1.7 10^3/uL (1.5-5.0); MEAN CORPUSCULAR HEMOGLOBIN 29.2 pg (27.0-33.0); MEAN CORPUSCULAR HGB CONC 33.7 g/dl (32.0-36.5); MEAN CORPUSCULAR VOLUME 86.7 fl (80.0-96.0); MONO # 0.9 10^3/uL (0.0-0.8); MONO % 11.4 % (2.0-8.0); NEUTROPHILS # 5.3 10^3/uL (1.5-8.5); NEUTROPHILS % 64.1 % (36.0-66.0); PLATELET COUNT, AUTOMATED 184 10^3/uL (150-450); RED BLOOD COUNT 4.72 10^6/uL (4.30-6.10); WHITE BLOOD COUNT 8.2 10^3/uL (4.0-10.0)
[2024-04-10 06:40] LABS: BLOOD UREA NITROGEN 11 MG/DL (9-23); CALCIUM LEVEL 8.1 MG/DL (8.3-10.6); CARBON DIOXIDE LEVEL 30 MMOL/L (20-31); CHLORIDE LEVEL 103 MMOL/L (98-107); CREATININE FOR GFR 0.87 MG/DL (0.70-1.30); GLOMERULAR FILTRATION RATE > 60.0 (>49); GLUCOSE, FASTING 94 MG/DL (74-106); POTASSIUM SERUM 3.5 MMOL/L (3.5-5.1); SODIUM LEVEL 140 MMOL/L (136-145)
[2024-04-10 13:00] VITALS: BP 156/84; TEMP 97.5; O2SAT 97
[2024-04-10] MEDS: ATORVASTATIN 20 MG TAB PO SCH (13:37)
[2024-04-10] MEDS: LABETALOL 200 MG TAB PO SCH (13:39)
[2024-04-10 14:02] VITALS: BP 146/81
[2024-04-10 19:59] VITALS: BP 130/76; TEMP 97.3; O2SAT 98
[2024-04-10 22:00] VITALS: BP 133/75
[2024-04-11 06:09] VITALS: BP 117/79; TEMP 97.7; O2SAT 96
[2024-04-11 06:53] LABS: BASO % 0.4 % (0.0-1.0); EOS # 0.2 10^3/uL (0.0-0.5); EOS % 2.9 % (0.0-3.0); HEMATOCRIT 40.1 % (42.0-52.0); HEMOGLOBIN 13.5 g/dl (13.5-17.5); LYMPH # 1.7 10^3/uL (1.5-5.0); LYMPH % 22.7 % (24.0-44.0); MEAN CORPUSCULAR HEMOGLOBIN 29.4 pg (27.0-33.0); MEAN CORPUSCULAR HGB CONC 33.7 g/dl (32.0-36.5); MEAN CORPUSCULAR VOLUME 87.4 fl (80.0-96.0); MONO # 0.9 10^3/uL (0.0-0.8); NEUTROPHILS # 4.7 10^3/uL (1.5-8.5); NEUTROPHILS % 61.2 % (36.0-66.0); PLATELET COUNT, AUTOMATED 206 10^3/uL (150-450); RED BLOOD COUNT 4.59 10^6/uL (4.30-6.10); WHITE BLOOD COUNT 7.7 10^3/uL (4.0-10.0)
[2024-04-11 07:17] LABS: BLOOD UREA NITROGEN 12 MG/DL (9-23); CALCIUM LEVEL 8.2 MG/DL (8.3-10.6); CARBON DIOXIDE LEVEL 30 MMOL/L (20-31); CHLORIDE LEVEL 103 MMOL/L (98-107); GLOMERULAR FILTRATION RATE > 60.0 (>49); GLUCOSE, FASTING 95 MG/DL (74-106); POTASSIUM SERUM 3.7 MMOL/L (3.5-5.1); SODIUM LEVEL 139 MMOL/L (136-145)
[2024-04-11 08:00] VITALS: BP 123/81
[2024-04-11 14:21] VITALS: BP 124/75; TEMP 97.7; O2SAT 94
[2024-04-11 14:29] VITALS: BP 124/75
[2024-04-11 20:03] VITALS: BP 147/87; TEMP 97.3; O2SAT 97
[2024-04-12 06:18] LABS: BASO % 0.4 % (0.0-1.0); EOS # 0.2 10^3/uL (0.0-0.5); EOS % 2.9 % (0.0-3.0); HEMATOCRIT 40.8 % (42.0-52.0); HEMOGLOBIN 13.7 g/dl (13.5-17.5); LYMPH % 25.8 % (24.0-44.0); MEAN CORPUSCULAR HEMOGLOBIN 29.2 pg (27.0-33.0); MEAN CORPUSCULAR HGB CONC 33.6 g/dl (32.0-36.5); MONO % 13.4 % (2.0-8.0); NEUTROPHILS # 4.3 10^3/uL (1.5-8.5); NEUTROPHILS % 56.8 % (36.0-66.0); PLATELET COUNT, AUTOMATED 216 10^3/uL (150-450); RED BLOOD COUNT 4.69 10^6/uL (4.30-6.10); WHITE BLOOD COUNT 7.6 10^3/uL (4.0-10.0)
[2024-04-12 06:48] LABS: BLOOD UREA NITROGEN 10 MG/DL (9-23); CALCIUM LEVEL 8.4 MG/DL (8.3-10.6); CARBON DIOXIDE LEVEL 30 MMOL/L (20-31); CHLORIDE LEVEL 102 MMOL/L (98-107); CREATININE FOR GFR 0.94 MG/DL (0.70-1.30); GLOMERULAR FILTRATION RATE > 60.0 (>49); GLUCOSE, FASTING 93 MG/DL (74-106); POTASSIUM SERUM 3.7 MMOL/L (3.5-5.1); SODIUM LEVEL 140 MMOL/L (136-145)
[2024-04-12] MEDS ORDERED: FLEET OIL RETENTION ENEMA PR PRN (10:50)
[2024-04-12 12:00] VITALS: BP 123/71; TEMP 97.7; O2SAT 97
[2024-04-12 20:13] VITALS: BP 132/75; TEMP 97.3; O2SAT 98
[2024-04-12] MEDS: ACETAMINOPHEN 325 MG TAB PO PRN (20:22)
[2024-04-13 03:18] VITALS: BP 121/66; TEMP 97.2; O2SAT 98
[2024-04-13 06:03] LABS: BASO % 0.4 % (0.0-1.0); EOS # 0.2 10^3/uL (0.0-0.5); EOS % 2.9 % (0.0-3.0); HEMATOCRIT 39.8 % (42.0-52.0); LYMPH # 1.8 10^3/uL (1.5-5.0); LYMPH % 26.2 % (24.0-44.0); MEAN CORPUSCULAR HEMOGLOBIN 28.6 pg (27.0-33.0); MEAN CORPUSCULAR HGB CONC 32.7 g/dl (32.0-36.5); MEAN CORPUSCULAR VOLUME 87.7 fl (80.0-96.0); MONO % 14.6 % (2.0-8.0); NEUTROPHILS # 3.8 10^3/uL (1.5-8.5); PLATELET COUNT, AUTOMATED 216 10^3/uL (150-450); RED BLOOD COUNT 4.54 10^6/uL (4.30-6.10); WHITE BLOOD COUNT 6.9 10^3/uL (4.0-10.0)
[2024-04-13 06:27] LABS: BLOOD UREA NITROGEN 8 MG/DL (9-23); CALCIUM LEVEL 8.4 MG/DL (8.3-10.6); CARBON DIOXIDE LEVEL 28 MMOL/L (20-31); CHLORIDE LEVEL 107 MMOL/L (98-107); CREATININE FOR GFR 0.89 MG/DL (0.70-1.30); GLOMERULAR FILTRATION RATE > 60.0 (>49); GLUCOSE, FASTING 86 MG/DL (74-106); POTASSIUM SERUM 3.6 MMOL/L (3.5-5.1); SODIUM LEVEL 142 MMOL/L (136-145)
[2024-04-13 12:00] VITALS: BP 127/66; TEMP 97.5; O2SAT 98
[2024-04-13 20:34] VITALS: BP 132/69; TEMP 97.3; O2SAT 97
[2024-04-14 05:37] VITALS: BP 129/69; TEMP 97; O2SAT 97
[2024-04-14 05:48] LABS: BASO % 0.5 % (0.0-1.0); EOS # 0.2 10^3/uL (0.0-0.5); EOS % 2.6 % (0.0-3.0); HEMATOCRIT 41.1 % (42.0-52.0); HEMOGLOBIN 13.7 g/dl (13.5-17.5); LYMPH # 2.2 10^3/uL (1.5-5.0); LYMPH % 27.9 % (24.0-44.0); MEAN CORPUSCULAR HEMOGLOBIN 29.1 pg (27.0-33.0); MEAN CORPUSCULAR HGB CONC 33.3 g/dl (32.0-36.5); MEAN CORPUSCULAR VOLUME 87.3 fl (80.0-96.0); MONO # 0.9 10^3/uL (0.0-0.8); MONO % 11.5 % (2.0-8.0); NEUTROPHILS # 4.4 10^3/uL (1.5-8.5); NEUTROPHILS % 56.9 % (36.0-66.0); PLATELET COUNT, AUTOMATED 224 10^3/uL (150-450); RED BLOOD COUNT 4.71 10^6/uL (4.30-6.10); WHITE BLOOD COUNT 7.7 10^3/uL (4.0-10.0)
[2024-04-14 06:16] LABS: BLOOD UREA NITROGEN 8 MG/DL (9-23); CALCIUM LEVEL 8.3 MG/DL (8.3-10.6); CARBON DIOXIDE LEVEL 26 MMOL/L (20-31); CHLORIDE LEVEL 105 MMOL/L (98-107); CREATININE FOR GFR 0.87 MG/DL (0.70-1.30); GLOMERULAR FILTRATION RATE > 60.0 (>49); GLUCOSE, FASTING 83 MG/DL (74-106); POTASSIUM SERUM 3.7 MMOL/L (3.5-5.1); SODIUM LEVEL 141 MMOL/L (136-145)
[2024-04-14] MEDS ORDERED: GASTROGRAFIN SOLUTION 30ML As Ordered ONE (08:51)
[2024-04-14] MEDS: MAGNESIUM CITRATE 300ML BTL PO ONE (10:02)
[2024-04-14 10:16] VITALS: BP 140/84; TEMP 97; O2SAT 97
[2024-04-14 21:20] VITALS: BP 140/76; TEMP 97; O2SAT 97
[2024-04-15 04:14] VITALS: BP 137/73; TEMP 97.5; O2SAT 97
[2024-04-15 08:26] LABS: HEMATOCRIT 38.5 % (42.0-52.0); HEMOGLOBIN 12.9 g/dl (13.5-17.5); MEAN CORPUSCULAR HEMOGLOBIN 29.2 pg (27.0-33.0); MEAN CORPUSCULAR HGB CONC 33.5 g/dl (32.0-36.5); MEAN CORPUSCULAR VOLUME 87.1 fl (80.0-96.0); PLATELET COUNT, AUTOMATED 227 10^3/uL (150-450); RED BLOOD COUNT 4.42 10^6/uL (4.30-6.10); WHITE BLOOD COUNT 6.4 10^3/uL (4.0-10.0)
[2024-04-15 09:03] LABS: ALBUMIN 2.9 G/DL (3.2-5.2); ALKALINE PHOSPHATASE 118 U/L (40-129); ALT/SGPT 36 U/L (7.0-40); AST/SGOT 30 U/L (<34); BILIRUBIN,DIRECT 0.4 MG/DL (<0.4); BILIRUBIN,TOTAL 0.9 MG/DL (0.3-1.2); BLOOD UREA NITROGEN 6 MG/DL (9-23); CALCIUM LEVEL 8.6 MG/DL (8.3-10.6); CARBON DIOXIDE LEVEL 29 MMOL/L (20-31); CHLORIDE LEVEL 108 MMOL/L (98-107); CREATININE FOR GFR 0.97 MG/DL (0.70-1.30); GLOMERULAR FILTRATION RATE > 60.0 (>49); GLUCOSE, FASTING 126 MG/DL (74-106); POTASSIUM SERUM 4.1 MMOL/L (3.5-5.1); SODIUM LEVEL 144 MMOL/L (136-145); TOTAL PROTEIN 5.3 G/DL (5.7-8.2)
[2024-04-15 09:33] VITALS: BP 133/73
[2024-04-15] MEDS ORDERED: SIME80TA16 PO (12:25)
[2024-04-15] MEDS ORDERED: MIRA33506 PO ×2 (12:25→12:26)
[2024-04-15] MEDS ORDERED: MAGNESIUM CITRATE 300ML BTL PO ONE (13:00)
== END 2024-04-15 13:05 | disposition home or self-care (01) | DRG 389 ==
LOC: M ED 03:18 → M ED INP 09:02 → M PCU 15:49 → M MS5PR 04-09 01:10
PROVIDERS: ADMIT General Practice; ATTEND Internal Medicine
PROC: 0DBN8ZX Excision of Sigmoid Colon, Via Natural or Artificial Opening Endoscopic, Diagnostic (ICD-10-PCS; principal; 2024-04-08 07:30)
DX: K56.600 Partial intestinal obstruction, unspecified as to cause (principal); J98.11 Atelectasis; K57.32 Diverticulitis of large intestine without perforation or abscess without bleeding; I10 Essential (primary) hypertension; E78.5 Hyperlipidemia, unspecified; R42 Dizziness and giddiness; E80.6 Other disorders of bilirubin metabolism; K40.20 Bilateral inguinal hernia, without obstruction or gangrene, not specified as recurrent; K80.20 Calculus of gallbladder without cholecystitis without obstruction; K52.9 Noninfective gastroenteritis and colitis, unspecified; K70.0 Alcoholic fatty liver; R93.3 Abnormal findings on diagnostic imaging of other parts of digestive tract; F10.10 Alcohol abuse, uncomplicated; Z87.891 Personal history of nicotine dependence; Z79.01 Long term (current) use of anticoagulants; Z79.899 Other long term (current) drug therapy; Z88.0 Allergy status to penicillin; Z86.718 Personal history of other venous thrombosis and embolism; Z86.711 Personal history of pulmonary embolism

== ENCOUNTER 2024-05-01 06:01 | Inpatient (IN) | payer MEDICARE ==
[2024-05-01] VITALS (8 sets, daily range): BP systolic 102–124; BP diastolic 68–86; TEMP 96.6–97.3; O2SAT 96–100
[~2024-05-01] VITALS: Ht 175.3 cm; Wt 83.1 kg
[~2024-05-01 06:01] MED LIST changes: +EX-L15CH3 PO; +MIRA33506 PO; +SIME80TA16 PO; +magnesium citrate PO
[2024-05-01] MEDS ORDERED: MIDAZOLAM INJ 2MG/2ML VIAL As Ordered ONE (07:11)
[2024-05-01] MEDS ORDERED: fentaNYL 100 MCG/2 ML INJECTION As Ordered ONE (07:11)
[2024-05-01] MEDS ORDERED: dexmedeTOMIDine (4MCG/ML)200MCG/50ML BTL (PRECEDEX) As Ordered ONE (07:12)
[2024-05-01] MEDS ORDERED: propofoL 200 MG/20 ML VIAL As Ordered ONE (07:12)
[2024-05-01] MEDS ORDERED: ROCURONIUM BROMIDE 50MG/5ML VIAL As Ordered ONE (07:12)
[2024-05-01] MEDS ORDERED: LIDOCAINE 2% 100MG/5ML SDV (FOR ANES.) As Ordered ONE (07:12)
[2024-05-01] MEDS ORDERED: ACETAMINOPHEN 1000MG/100ML IV BAG As Ordered ONE (07:12)
[2024-05-01] MEDS ORDERED: ONDANSETRON 4MG 2ML VIAL As Ordered ONE (07:12)
[2024-05-01] MEDS: ceFAZolin SOD 2 GM in IV 1 EA IV ONE (07:43)
[2024-05-01] MEDS: metroNIDAZOLE 500 MG in IV 1 EA IV ONE (07:47)
[2024-05-01] MEDS ORDERED: KETOROLAC 60MG 2ML VIAL As Ordered ONE (08:28)
[2024-05-01] MEDS ORDERED: SUGAMMADEX SODIUM 500 MG/5 ML VIAL (BRIDION) As Ordered ONE (08:28)
[2024-05-01] MEDS: ceFAZolin 2 GM/D5W 50 ML IV BAG As Ordered ONE (11:43)
[2024-05-01] MEDS ORDERED: fentaNYL 100 MCG/2 ML INJECTION IV PRN (12:25)
[2024-05-01] MEDS ORDERED: PROMETHAZINE 25MG/ML 1ML VIAL IV PRN (12:25)
[2024-05-01] MEDS: ONDANSETRON 4MG 2ML VIAL IV PRN (12:39)
[2024-05-01] MEDS: HYDROMORPHONE HCL 0.5 MG/ 0.5 ML SYRINGE IV PRN (12:40)
[2024-05-01] MEDS: oxyCODONE 5MG TAB PO PRN (12:41)
[2024-05-01] MEDS ORDERED: MORPHINE 2 MG/ML 1ML VIAL IV PRN (12:45)
[2024-05-01] MEDS: NS (Normal Saline) 0.9% 1,000 ML IV SCH (12:45)
[2024-05-01] MEDS: KETOROLAC 30 MG/ML 1ML VIAL IV PRN (17:28)
[2024-05-01] MEDS ORDERED: HOME MED LIST COMPLETE! XX SCH (19:50)
[2024-05-01] MEDS: SENOKOT S TAB PO SCH (21:12)
[2024-05-01] MEDS: LABETALOL 200 MG TAB PO SCH (21:12)
[2024-05-01] MEDS: NORCO, ANEXSIA 5/325MG TABLET (HYDROcodone/ACETAMINOPHEN) PO PRN (21:12)
[2024-05-02 03:48] VITALS: BP 101/60; TEMP 97.2; O2SAT 99
[2024-05-02 06:27] LABS: HEMATOCRIT 36.9 % (42.0-52.0); HEMOGLOBIN 12.2 g/dl (13.5-17.5); MEAN CORPUSCULAR HEMOGLOBIN 28.6 pg (27.0-33.0); MEAN CORPUSCULAR HGB CONC 33.1 g/dl (32.0-36.5); MEAN CORPUSCULAR VOLUME 86.4 fl (80.0-96.0); PLATELET COUNT, AUTOMATED 192 10^3/uL (150-450); RED BLOOD COUNT 4.27 10^6/uL (4.30-6.10); WHITE BLOOD COUNT 11.7 10^3/uL (4.0-10.0)
[2024-05-02 06:50] LABS: ALBUMIN 2.8 G/DL (3.2-5.2); ALKALINE PHOSPHATASE 134 U/L (40-129); ALT/SGPT 38 U/L (7.0-40); AST/SGOT 30 U/L (<34); BILIRUBIN,TOTAL 0.6 MG/DL (0.3-1.2); BLOOD UREA NITROGEN 16 MG/DL (9-23); CARBON DIOXIDE LEVEL 26 MMOL/L (20-31); CHLORIDE LEVEL 103 MMOL/L (98-107); CREATININE FOR GFR 0.96 MG/DL (0.70-1.30); GLOMERULAR FILTRATION RATE > 60.0 (>49); GLUCOSE, FASTING 131 MG/DL (74-106); MAGNESIUM LEVEL 1.7 MG/DL (1.8-2.4); POTASSIUM SERUM 4.4 MMOL/L (3.5-5.1); SODIUM LEVEL 138 MMOL/L (136-145); TOTAL PROTEIN 4.9 G/DL (5.7-8.2)
[2024-05-02 07:45] VITALS: BP 115/82; TEMP 97.6; O2SAT 99
[2024-05-02] MEDS: MAGNESIUM OXIDE 400MG TAB (MAG-OX) PO SCH (08:49)
[2024-05-02] MEDS: PANTOPRAZOLE 40MG TAB (PROTONIX) PO SCH (08:49)
[2024-05-02] MEDS: ATORVASTATIN 20 MG TAB PO SCH (08:49)
[2024-05-02] MEDS: ENOXAPARIN 40MG/0.4ML SYRINGE (J1650 PER 10MG) SC SCH (08:50)
[2024-05-02] MEDS: CHLORTHALIDONE 12.5MG PER 1/2 TABLET PO SCH (09:00)
[2024-05-02 10:00] VITALS: BP 101/58; TEMP 97.3; O2SAT 95
[2024-05-02 12:05] VITALS: BP 118/84; TEMP 97; O2SAT 95
[2024-05-02 20:36] VITALS: BP 103/57; TEMP 97.7; O2SAT 96
[2024-05-03 04:00] VITALS: BP 104/58; TEMP 97.5; O2SAT 95
[2024-05-03 06:40] LABS: HEMOGLOBIN 12.1 g/dl (13.5-17.5); MEAN CORPUSCULAR HEMOGLOBIN 28.3 pg (27.0-33.0); MEAN CORPUSCULAR HGB CONC 32.7 g/dl (32.0-36.5); MEAN CORPUSCULAR VOLUME 86.7 fl (80.0-96.0); PLATELET COUNT, AUTOMATED 170 10^3/uL (150-450); RED BLOOD COUNT 4.27 10^6/uL (4.30-6.10)
[2024-05-03 07:11] LABS: ALBUMIN 2.7 G/DL (3.2-5.2); ALKALINE PHOSPHATASE 119 U/L (40-129); ALT/SGPT 27 U/L (7.0-40); AST/SGOT 23 U/L (<34); BILIRUBIN,TOTAL 0.7 MG/DL (0.3-1.2); BLOOD UREA NITROGEN 7 MG/DL (9-23); CALCIUM LEVEL 8.4 MG/DL (8.3-10.6); CARBON DIOXIDE LEVEL 27 MMOL/L (20-31); CHLORIDE LEVEL 108 MMOL/L (98-107); GLOMERULAR FILTRATION RATE > 60.0 (>49); GLUCOSE, FASTING 84 MG/DL (74-106); MAGNESIUM LEVEL 1.8 MG/DL (1.8-2.4); POTASSIUM SERUM 3.7 MMOL/L (3.5-5.1); SODIUM LEVEL 143 MMOL/L (136-145); TOTAL PROTEIN 4.8 G/DL (5.7-8.2)
[2024-05-03] MEDS: NORCO, ANEXSIA 5/325MG TABLET (HYDROcodone/ACETAMINOPHEN) PO PRN (08:52)
[2024-05-03 12:00] VITALS: BP 146/80; TEMP 96.8; O2SAT 96
[2024-05-03] MEDS: ACETAMINOPHEN *IV* 1,000 MG in IV 1 EA IV ONE (12:07)
[2024-05-03] MEDS ORDERED: methocarbamoL 750 MG TAB PO PRN (12:50)
[2024-05-03 19:49] VITALS: BP 137/80; TEMP 97.5; O2SAT 97
[2024-05-04 04:00] VITALS: BP 131/74; TEMP 97.5; O2SAT 94
[2024-05-04 06:46] LABS: HEMATOCRIT 36.7 % (42.0-52.0); HEMOGLOBIN 12.1 g/dl (13.5-17.5); MEAN CORPUSCULAR HEMOGLOBIN 28.6 pg (27.0-33.0); MEAN CORPUSCULAR VOLUME 86.8 fl (80.0-96.0); PLATELET COUNT, AUTOMATED 172 10^3/uL (150-450); RED BLOOD COUNT 4.23 10^6/uL (4.30-6.10)
[2024-05-04 07:12] LABS: ALBUMIN 2.6 G/DL (3.2-5.2); ALKALINE PHOSPHATASE 111 U/L (40-129); ALT/SGPT 25 U/L (7.0-40); AST/SGOT 24 U/L (<34); BILIRUBIN,TOTAL 0.7 MG/DL (0.3-1.2); BLOOD UREA NITROGEN < 5 MG/DL (9-23); CALCIUM LEVEL 8.4 MG/DL (8.3-10.6); CARBON DIOXIDE LEVEL 28 MMOL/L (20-31); CHLORIDE LEVEL 109 MMOL/L (98-107); CREATININE FOR GFR 0.76 MG/DL (0.70-1.30); GLOMERULAR FILTRATION RATE > 60.0 (>49); GLUCOSE, FASTING 89 MG/DL (74-106); MAGNESIUM LEVEL 1.7 MG/DL (1.8-2.4); POTASSIUM SERUM 3.6 MMOL/L (3.5-5.1); SODIUM LEVEL 144 MMOL/L (136-145); TOTAL PROTEIN 4.8 G/DL (5.7-8.2)
[2024-05-04 12:00] VITALS: BP 152/73; TEMP 97.2; O2SAT 98
[2024-05-04 20:15] VITALS: BP 140/89; TEMP 97.5; O2SAT 97
[2024-05-05 04:00] VITALS: BP 130/75; TEMP 97.5; O2SAT 98
[2024-05-05 05:55] LABS: HEMATOCRIT 37.1 % (42.0-52.0); HEMOGLOBIN 12.1 g/dl (13.5-17.5); MEAN CORPUSCULAR HEMOGLOBIN 28.4 pg (27.0-33.0); MEAN CORPUSCULAR HGB CONC 32.6 g/dl (32.0-36.5); MEAN CORPUSCULAR VOLUME 87.1 fl (80.0-96.0); PLATELET COUNT, AUTOMATED 172 10^3/uL (150-450); RED BLOOD COUNT 4.26 10^6/uL (4.30-6.10)
[2024-05-05 06:21] LABS: ALBUMIN 2.6 G/DL (3.2-5.2); ALKALINE PHOSPHATASE 110 U/L (40-129); ALT/SGPT 39 U/L (7.0-40); AST/SGOT 46 U/L (<34); BILIRUBIN,TOTAL 0.7 MG/DL (0.3-1.2); BLOOD UREA NITROGEN < 5 MG/DL (9-23); CALCIUM LEVEL 8.2 MG/DL (8.3-10.6); CARBON DIOXIDE LEVEL 30 MMOL/L (20-31); CHLORIDE LEVEL 106 MMOL/L (98-107); CREATININE FOR GFR 0.78 MG/DL (0.70-1.30); GLOMERULAR FILTRATION RATE > 60.0 (>49); GLUCOSE, FASTING 98 MG/DL (74-106); MAGNESIUM LEVEL 1.6 MG/DL (1.8-2.4); POTASSIUM SERUM 3.3 MMOL/L (3.5-5.1); SODIUM LEVEL 143 MMOL/L (136-145); TOTAL PROTEIN 4.6 G/DL (5.7-8.2)
[2024-05-05] MEDS: MAGNESIUM OXIDE 400MG TAB (MAG-OX) PO SCH (09:13)
[2024-05-05] MEDS: POTASSIUM CHLORIDE 10MEQ SR TABLET PO SCH (09:36)
[2024-05-05 10:49] VITALS: BP 138/80; TEMP 98.7; O2SAT 98
[2024-05-05 12:00] VITALS: BP 132/68; TEMP 97.2; O2SAT 96
[2024-05-05] MEDS: ONDANSETRON 4MG 2ML VIAL IV PRN (17:53)
[2024-05-05 20:12] VITALS: BP 109/68; TEMP 99; O2SAT 97
[2024-05-05] MEDS: IBUPROFEN 600MG TAB PO PRN (22:26)
[2024-05-06] VITALS (8 sets, daily range): BP systolic 109–136; BP diastolic 58–80; TEMP 96.8–97.7; O2SAT 83–95
[2024-05-06 06:39] LABS: HEMATOCRIT 37.1 % (42.0-52.0); HEMOGLOBIN 12.3 g/dl (13.5-17.5); MEAN CORPUSCULAR HEMOGLOBIN 28.7 pg (27.0-33.0); MEAN CORPUSCULAR HGB CONC 33.2 g/dl (32.0-36.5); MEAN CORPUSCULAR VOLUME 86.7 fl (80.0-96.0); PLATELET COUNT, AUTOMATED 181 10^3/uL (150-450); RED BLOOD COUNT 4.28 10^6/uL (4.30-6.10); WHITE BLOOD COUNT 8.8 10^3/uL (4.0-10.0)
[2024-05-06 07:16] LABS: ALBUMIN 2.7 G/DL (3.2-5.2); ALKALINE PHOSPHATASE 112 U/L (40-129); ALT/SGPT 52 U/L (7.0-40); AST/SGOT 52 U/L (<34); BILIRUBIN,TOTAL 0.8 MG/DL (0.3-1.2); BLOOD UREA NITROGEN 10 MG/DL (9-23); CALCIUM LEVEL 8.2 MG/DL (8.3-10.6); CARBON DIOXIDE LEVEL 29 MMOL/L (20-31); CHLORIDE LEVEL 103 MMOL/L (98-107); CREATININE FOR GFR 0.94 MG/DL (0.70-1.30); GLOMERULAR FILTRATION RATE > 60.0 (>49); GLUCOSE, FASTING 128 MG/DL (74-106); MAGNESIUM LEVEL 1.5 MG/DL (1.8-2.4); SODIUM LEVEL 139 MMOL/L (136-145); TOTAL PROTEIN 4.8 G/DL (5.7-8.2)
[2024-05-06] MEDS: NS (Normal Saline) 0.9% 1,000 ML IV SCH (08:05)
[2024-05-06] MEDS: CIPROFLOXACIN 400 MG in IV 1 EA IV SCH (08:41)
[2024-05-06] MEDS: MAG SULF 1GM/100ML (MAG RUN) 1 GM in IV 1 EA IV SCH (09:56)
[2024-05-06] MEDS: metroNIDAZOLE 500 MG in IV 1 EA IV SCH (10:55)
[2024-05-06] MEDS ORDERED: PHENYLephrine 500MCG 5ML (100MCG/ML) SYRINGE As Ordered ONE (14:56)
[2024-05-06] MEDS ORDERED: SUCCINYLCHOLINE 100MG/5ML SYRINGE As Ordered ONE (14:56)
[2024-05-06] MEDS ORDERED: oxyCODONE 5MG TAB PO PRN (16:25)
[2024-05-06] MEDS ORDERED: fentaNYL 100 MCG/2 ML INJECTION IV PRN (16:25)
[2024-05-06] MEDS ORDERED: ONDANSETRON 4MG 2ML VIAL IV PRN (16:25)
[2024-05-06] MEDS: MORPHINE 2 MG/ML 1ML VIAL IV PRN (16:39)
[2024-05-07 02:04] VITALS: BP 128/58; TEMP 97.3; O2SAT 94
[2024-05-07 06:00] VITALS: BP 122/72; TEMP 97.5; O2SAT 93
[2024-05-07 06:02] LABS: HEMATOCRIT 37.2 % (42.0-52.0); HEMOGLOBIN 12.2 g/dl (13.5-17.5); MEAN CORPUSCULAR HEMOGLOBIN 28.4 pg (27.0-33.0); MEAN CORPUSCULAR HGB CONC 32.8 g/dl (32.0-36.5); MEAN CORPUSCULAR VOLUME 86.7 fl (80.0-96.0); PLATELET COUNT, AUTOMATED 180 10^3/uL (150-450); RED BLOOD COUNT 4.29 10^6/uL (4.30-6.10); WHITE BLOOD COUNT 13.2 10^3/uL (4.0-10.0)
[2024-05-07 06:42] LABS: ALBUMIN 2.3 G/DL (3.2-5.2); ALKALINE PHOSPHATASE 92 U/L (40-129); ALT/SGPT 39 U/L (7.0-40); AST/SGOT 30 U/L (<34); BILIRUBIN,TOTAL 1.1 MG/DL (0.3-1.2); BLOOD UREA NITROGEN 11 MG/DL (9-23); CARBON DIOXIDE LEVEL 26 MMOL/L (20-31); CHLORIDE LEVEL 105 MMOL/L (98-107); CREATININE FOR GFR 0.82 MG/DL (0.70-1.30); GLOMERULAR FILTRATION RATE > 60.0 (>49); GLUCOSE, FASTING 126 MG/DL (74-106); MAGNESIUM LEVEL 1.8 MG/DL (1.8-2.4); SODIUM LEVEL 137 MMOL/L (136-145); TOTAL PROTEIN 4.7 G/DL (5.7-8.2)
[2024-05-07 12:20] VITALS: BP 118/78; TEMP 97.8; O2SAT 94
[2024-05-07 19:46] VITALS: BP 130/80; TEMP 98.9; O2SAT 98
[2024-05-08] VITALS (9 sets, daily range): BP systolic 125–142; BP diastolic 60–80; TEMP 97.5–98.7; O2SAT 91–97
[2024-05-08 06:51] LABS: HEMATOCRIT 36.5 % (42.0-52.0); HEMOGLOBIN 12.2 g/dl (13.5-17.5); MEAN CORPUSCULAR HEMOGLOBIN 28.5 pg (27.0-33.0); MEAN CORPUSCULAR HGB CONC 33.4 g/dl (32.0-36.5); MEAN CORPUSCULAR VOLUME 85.3 fl (80.0-96.0); PLATELET COUNT, AUTOMATED 203 10^3/uL (150-450); RED BLOOD COUNT 4.28 10^6/uL (4.30-6.10); WHITE BLOOD COUNT 12.5 10^3/uL (4.0-10.0)
[2024-05-08 07:22] LABS: ALBUMIN 2.2 G/DL (3.2-5.2); ALKALINE PHOSPHATASE 85 U/L (40-129); ALT/SGPT 33 U/L (7.0-40); AST/SGOT 23 U/L (<34); BLOOD UREA NITROGEN 13 MG/DL (9-23); CALCIUM LEVEL 8.2 MG/DL (8.3-10.6); CARBON DIOXIDE LEVEL 25 MMOL/L (20-31); CHLORIDE LEVEL 104 MMOL/L (98-107); CREATININE FOR GFR 0.81 MG/DL (0.70-1.30); GLOMERULAR FILTRATION RATE > 60.0 (>49); GLUCOSE, FASTING 93 MG/DL (74-106); MAGNESIUM LEVEL 1.7 MG/DL (1.8-2.4); POTASSIUM SERUM 4.3 MMOL/L (3.5-5.1); SODIUM LEVEL 134 MMOL/L (136-145); TOTAL PROTEIN 4.5 G/DL (5.7-8.2)
[2024-05-08] MEDS: LABETALOL 200 MG TAB NG SCH (21:47)
[2024-05-08 21:48] LABS: BASO % 0.1 % (0.0-1.0); EOS % 0.3 % (0.0-3.0); HEMOGLOBIN 12.1 g/dl (13.5-17.5); LYMPH # 1.1 10^3/uL (1.5-5.0); LYMPH % 10.4 % (24.0-44.0); MEAN CORPUSCULAR HEMOGLOBIN 28.5 pg (27.0-33.0); MEAN CORPUSCULAR HGB CONC 32.7 g/dl (32.0-36.5); MEAN CORPUSCULAR VOLUME 87.3 fl (80.0-96.0); MONO # 0.8 10^3/uL (0.0-0.8); NEUTROPHILS # 8.4 10^3/uL (1.5-8.5); NEUTROPHILS % 80.5 % (36.0-66.0); PLATELET COUNT, AUTOMATED 237 10^3/uL (150-450); RED BLOOD COUNT 4.24 10^6/uL (4.30-6.10); WHITE BLOOD COUNT 10.4 10^3/uL (4.0-10.0)
[2024-05-08 22:01] LABS: INR 1.62; PARTIAL THROMBOPLASTIN TIME 48.3 SECONDS (24.8-34.2); PROTHROMBIN TIME 19.5 SECONDS (12.5-14.5)
[2024-05-08 22:08] LABS: CPK CREATINE PHOSPHOKINASE < 15 U/L (46-171)
[2024-05-08 22:09] LABS: ALBUMIN 2.1 G/DL (3.2-5.2); ALKALINE PHOSPHATASE 82 U/L (40-129); ALT/SGPT 29 U/L (7.0-40); AST/SGOT 22 U/L (<34); BILIRUBIN,TOTAL 1.1 MG/DL (0.3-1.2); BLOOD UREA NITROGEN 13 MG/DL (9-23); CARBON DIOXIDE LEVEL 28 MMOL/L (20-31); CHLORIDE LEVEL 102 MMOL/L (98-107); CK-MB VALUE MASS < 1.0 NG/ML (<3.6); CREATININE FOR GFR 0.86 MG/DL (0.70-1.30); GLOMERULAR FILTRATION RATE > 60.0 (>49); GLUCOSE, FASTING 104 MG/DL (74-106); MAGNESIUM LEVEL 1.8 MG/DL (1.8-2.4); POTASSIUM SERUM 4.2 MMOL/L (3.5-5.1); SODIUM LEVEL 136 MMOL/L (136-145); TOTAL PROTEIN 4.5 G/DL (5.7-8.2)
[2024-05-08 22:17] LABS: PROCALCITONIN 1.69 ng/ml
[2024-05-09] VITALS (7 sets, daily range): BP systolic 125–142; BP diastolic 71–78; TEMP 97.7–99.4; O2SAT 93–97
[2024-05-09] MEDS: PANTOPRAZOLE 40MG VIAL IV SCH (09:21)
[2024-05-09] MEDS: MAGNESIUM OXIDE 400MG TAB (MAG-OX) NG SCH (09:21)
[2024-05-10 04:01] VITALS: BP 124/68; TEMP 97.5; O2SAT 95
[2024-05-10 07:47] VITALS: BP 128/67; TEMP 98.2; O2SAT 94
[2024-05-10 11:31] VITALS: BP 110/66; TEMP 97.9; O2SAT 97
[2024-05-10 16:00] VITALS: BP 157/78; TEMP 97.6; O2SAT 97
[2024-05-10] MEDS ORDERED: GLUCAGON INJ 1MG VIAL SC PRN (18:35)
[2024-05-10] MEDS ORDERED: DEXTROSE 50% 50ML SYRINGE IV PRN (18:35)
[2024-05-10] MEDS ORDERED: GLUCOSE 4 GM CHEW PO PRN (18:35)
[2024-05-10] MEDS: D5W 1,000 ML IV SCH (18:42)
[2024-05-10 19:46] VITALS: BP 146/74; TEMP 97.4; O2SAT 96
[2024-05-10 23:15] VITALS: BP 131/77; TEMP 98.1; O2SAT 95
[2024-05-11 03:30] VITALS: BP 137/85; TEMP 97.8; O2SAT 94
[2024-05-11 07:54] VITALS: BP 137/79; TEMP 97.8; O2SAT 95
[2024-05-11 10:15] LABS: HEMATOCRIT 34.7 % (42.0-52.0); HEMOGLOBIN 11.7 g/dl (13.5-17.5); MEAN CORPUSCULAR HEMOGLOBIN 28.7 pg (27.0-33.0); MEAN CORPUSCULAR HGB CONC 33.7 g/dl (32.0-36.5); MEAN CORPUSCULAR VOLUME 85.3 fl (80.0-96.0); PLATELET COUNT, AUTOMATED 256 10^3/uL (150-450); RED BLOOD COUNT 4.07 10^6/uL (4.30-6.10)
[2024-05-11 10:51] LABS: BLOOD UREA NITROGEN 8 MG/DL (9-23); C REACTIVE PROTEIN QUANTITATIV 7.02 MG/DL (<1.0); CALCIUM LEVEL 7.7 MG/DL (8.3-10.6); CARBON DIOXIDE LEVEL 29 MMOL/L (20-31); CHLORIDE LEVEL 101 MMOL/L (98-107); CREATININE FOR GFR 0.67 MG/DL (0.70-1.30); GLOMERULAR FILTRATION RATE > 60.0 (>49); GLUCOSE, FASTING 131 MG/DL (74-106); MAGNESIUM LEVEL 1.8 MG/DL (1.8-2.4); POTASSIUM SERUM 3.4 MMOL/L (3.5-5.1); SODIUM LEVEL 135 MMOL/L (136-145)
[2024-05-11] MEDS: KCL 10MEQ/100ML SWI (KRUN) 10 MEQ in IV 1 EA IV ONE (12:29)
[2024-05-11 16:21] VITALS: BP 147/70; TEMP 97.9; O2SAT 96
[2024-05-11] MEDS: INSULIN LISPRO (NovoLOG) PER UNIT SC SCH (16:45)
[2024-05-11] MEDS: AMINO AC/ELECTROLYTE/DEX/CALC 1,000 ML IV SCH (17:01)
[2024-05-11] MEDS: FAT EMULSION IV 250 ML IV ONE (17:01)
[2024-05-11 19:50] VITALS: BP 142/80; TEMP 97; O2SAT 97
[2024-05-11 23:27] VITALS: BP 139/71; TEMP 97; O2SAT 97
[2024-05-12 03:21] VITALS: BP 133/69; TEMP 97.3; O2SAT 95
[2024-05-12 08:07] VITALS: BP 135/68; TEMP 98.1; O2SAT 97
[2024-05-12 08:58] LABS: HEMATOCRIT 35.9 % (42.0-52.0); MEAN CORPUSCULAR HEMOGLOBIN 28.2 pg (27.0-33.0); MEAN CORPUSCULAR HGB CONC 33.4 g/dl (32.0-36.5); MEAN CORPUSCULAR VOLUME 84.3 fl (80.0-96.0); PLATELET COUNT, AUTOMATED 275 10^3/uL (150-450); RED BLOOD COUNT 4.26 10^6/uL (4.30-6.10); WHITE BLOOD COUNT 7.8 10^3/uL (4.0-10.0)
[2024-05-12 09:30] LABS: ALKALINE PHOSPHATASE 76 U/L (40-129); ALT/SGPT 15 U/L (7.0-40); AST/SGOT 19 U/L (<34); BILIRUBIN,TOTAL 0.5 MG/DL (0.3-1.2); BLOOD UREA NITROGEN 6 MG/DL (9-23); CARBON DIOXIDE LEVEL 30 MMOL/L (20-31); CHLORIDE LEVEL 102 MMOL/L (98-107); CREATININE FOR GFR 0.66 MG/DL (0.70-1.30); GLOMERULAR FILTRATION RATE > 60.0 (>49); GLUCOSE, FASTING 134 MG/DL (74-106); MAGNESIUM LEVEL 1.9 MG/DL (1.8-2.4); POTASSIUM SERUM 3.5 MMOL/L (3.5-5.1); SODIUM LEVEL 137 MMOL/L (136-145); TOTAL PROTEIN 4.1 G/DL (5.7-8.2)
[2024-05-12] MEDS: POTASSIUM CHLORIDE 10% LIQ 20MEQ/15ML UDC NG SCH (09:57)
[2024-05-12] MEDS ORDERED: ISOVUE-370 76% 100ML VIAL As Ordered ONE (10:37)
[2024-05-12 12:00] VITALS: BP 117/59; TEMP 97.3; O2SAT 98
[2024-05-12 16:00] VITALS: BP 132/81; TEMP 98.5; O2SAT 96
[2024-05-12] MEDS: INSULIN LISPRO (NovoLOG) PER UNIT SC SCH (17:45)
[2024-05-12] MEDS: FAT EMULSION IV 250 ML IV ONE (17:46)
[2024-05-12] MEDS ORDERED: FAT EMULSION IV 250 ML IV ONE (18:00)
[2024-05-12] MEDS ORDERED: MULTIVITAMIN -ADULT INJECTION 10 ML, ZINC/COPPER/MANGANESE/SELENIUM 1 ML in AMINO AC/EL... IV SCH (18:00)
[2024-05-12 20:20] VITALS: BP 155/91; TEMP 98.5; O2SAT 96
[2024-05-12 23:34] VITALS: BP 127/70; TEMP 97.3; O2SAT 97
[2024-05-13] VITALS (8 sets, daily range): BP systolic 110–154; BP diastolic 66–86; TEMP 97.1–98.4; O2SAT 92–99
[2024-05-13 06:48] LABS: HEMATOCRIT 36.3 % (42.0-52.0); HEMOGLOBIN 12.2 g/dl (13.5-17.5); MEAN CORPUSCULAR HEMOGLOBIN 28.4 pg (27.0-33.0); MEAN CORPUSCULAR HGB CONC 33.6 g/dl (32.0-36.5); MEAN CORPUSCULAR VOLUME 84.4 fl (80.0-96.0); PLATELET COUNT, AUTOMATED 313 10^3/uL (150-450); WHITE BLOOD COUNT 9.1 10^3/uL (4.0-10.0)
[2024-05-13 07:15] LABS: ALBUMIN 2.3 G/DL (3.2-5.2); ALKALINE PHOSPHATASE 78 U/L (40-129); ALT/SGPT 16 U/L (7.0-40); AST/SGOT 22 U/L (<34); BILIRUBIN,TOTAL 0.5 MG/DL (0.3-1.2); BLOOD UREA NITROGEN 8 MG/DL (9-23); CALCIUM LEVEL 8.3 MG/DL (8.3-10.6); CARBON DIOXIDE LEVEL 29 MMOL/L (20-31); CHLORIDE LEVEL 98 MMOL/L (98-107); CREATININE FOR GFR 0.65 MG/DL (0.70-1.30); GLOMERULAR FILTRATION RATE > 60.0 (>49); GLUCOSE, FASTING 157 MG/DL (74-106); POTASSIUM SERUM 3.8 MMOL/L (3.5-5.1); SODIUM LEVEL 133 MMOL/L (136-145); TOTAL PROTEIN 4.4 G/DL (5.7-8.2)
[2024-05-13] MEDS ORDERED: GASTROGRAFIN SOLUTION 30ML As Ordered ONE (10:00)
[2024-05-13] MEDS ORDERED: SODIUM CHLORIDE 0.9% INJ 10 ML SYR IV PRN (11:45)
[2024-05-13] MEDS ORDERED: fentaNYL 250 MCG/5 ML INJECTION As Ordered ONE (12:48)
[2024-05-13 13:25] LABS: HEMOGLOBIN A1c 5.6 % (4.0-6.0)
[2024-05-13] MEDS ORDERED: LACRILUBE (AKWA TEARS) OPHTH OINT 3.5GM As Ordered ONE (14:59)
[2024-05-13] MEDS ORDERED: HYDROMORPHONE HCL 0.5 MG/ 0.5 ML SYRINGE IV PRN (15:35)
[2024-05-13] MEDS ORDERED: oxyCODONE 5MG TAB PO PRN (15:35)
[2024-05-13] MEDS ORDERED: fentaNYL 100 MCG/2 ML INJECTION IV PRN (15:35)
[2024-05-13] MEDS ORDERED: ONDANSETRON 4MG 2ML VIAL IV PRN (15:35)
[2024-05-13] MEDS: SODIUM CHLORIDE 0.9% INJ 10 ML SYR IV SCH (18:30)
[2024-05-13] MEDS: INSULIN LISPRO (NovoLOG) PER UNIT SC SCH (18:31)
[2024-05-13] MEDS: FAT EMULSION IV 250 ML IV ONE (18:31)
[2024-05-13] MEDS: AMINO AC/ELECTROLYTE/DEX/CALC 2,000 ML IV SCH (18:31)
[2024-05-13] MEDS: D5W/0.9% SODIUM CHLORIDE 1,000 ML IV SCH (18:35)
[2024-05-13 22:03] LABS: KETONE, URINE AUTO RFX NEGATIVE (NEGATIVE); LEUKOCYTE ESTERASE UR AUTO RFX NEGATIVE (NEGATIVE); NITRITE, URINE AUTO RFX NEGATIVE (NEGATIVE); RBC, URINE AUTO RFX 2 /HPF (0-3); SQUAM EPITHELIAL CELL UR AURFX 0 /HPF (0-6); WBC, URINE AUTO RFX 1 /HPF (0-3)
[2024-05-14] MEDS: APIXABAN 5 MG TAB (ELIQUIS) PO SCH (01:54)
[2024-05-14 04:14] VITALS: BP 118/63; TEMP 96.7; O2SAT 95
[2024-05-14 06:35] LABS: HEMATOCRIT 33.6 % (42.0-52.0); HEMOGLOBIN 11.1 g/dl (13.5-17.5); MEAN CORPUSCULAR HEMOGLOBIN 28.1 pg (27.0-33.0); MEAN CORPUSCULAR VOLUME 85.1 fl (80.0-96.0); PLATELET COUNT, AUTOMATED 326 10^3/uL (150-450); RED BLOOD COUNT 3.95 10^6/uL (4.30-6.10); WHITE BLOOD COUNT 10.5 10^3/uL (4.0-10.0)
[2024-05-14 06:56] LABS: ALKALINE PHOSPHATASE 70 U/L (40-129); ALT/SGPT 17 U/L (7.0-40); AST/SGOT 20 U/L (<34); BILIRUBIN,TOTAL 0.4 MG/DL (0.3-1.2); BLOOD UREA NITROGEN 12 MG/DL (9-23); CALCIUM LEVEL 8.2 MG/DL (8.3-10.6); CARBON DIOXIDE LEVEL 27 MMOL/L (20-31); CHLORIDE LEVEL 102 MMOL/L (98-107); CREATININE FOR GFR 0.69 MG/DL (0.70-1.30); GLOMERULAR FILTRATION RATE > 60.0 (>49); GLUCOSE, FASTING 223 MG/DL (74-106); MAGNESIUM LEVEL 2.1 MG/DL (1.8-2.4); POTASSIUM SERUM 4.4 MMOL/L (3.5-5.1); SODIUM LEVEL 136 MMOL/L (136-145); TOTAL PROTEIN 4.2 G/DL (5.7-8.2)
[2024-05-14 07:50] VITALS: BP 116/62; TEMP 97.3; O2SAT 96
[2024-05-14 12:00] VITALS: BP 121/60; TEMP 97.1; O2SAT 96
[2024-05-14 16:30] VITALS: BP 126/73; TEMP 97.1; O2SAT 98
[2024-05-14] MEDS: MULTIVITAMIN -ADULT INJECTION 10 ML, ZINC/COPPER/MANGANESE/SELENIUM 1 ML in AMINO AC/EL... IV SCH (17:42)
[2024-05-14] MEDS: FAT EMULSION IV 250 ML IV ONE (17:42)
[2024-05-14] MEDS: INSULIN LISPRO (NovoLOG) PER UNIT SC SCH (17:43)
[2024-05-14 19:51] VITALS: BP 132/66; TEMP 97.1; O2SAT 96
[2024-05-14 23:30] VITALS: BP 134/65; TEMP 98.1; O2SAT 95
[2024-05-15 03:24] VITALS: BP 122/64; TEMP 98.6; O2SAT 96
[2024-05-15 08:00] VITALS: BP 128/64; TEMP 98.6; O2SAT 97
[2024-05-15 09:16] LABS: HEMATOCRIT 32.7 % (42.0-52.0); MEAN CORPUSCULAR HEMOGLOBIN 28.4 pg (27.0-33.0); MEAN CORPUSCULAR HGB CONC 33.6 g/dl (32.0-36.5); MEAN CORPUSCULAR VOLUME 84.3 fl (80.0-96.0); PLATELET COUNT, AUTOMATED 379 10^3/uL (150-450); RED BLOOD COUNT 3.88 10^6/uL (4.30-6.10); WHITE BLOOD COUNT 10.9 10^3/uL (4.0-10.0)
[2024-05-15 09:52] LABS: ALBUMIN 2.2 G/DL (3.2-5.2); ALKALINE PHOSPHATASE 69 U/L (40-129); ALT/SGPT 15 U/L (7.0-40); AST/SGOT 20 U/L (<34); BILIRUBIN,TOTAL 0.5 MG/DL (0.3-1.2); BLOOD UREA NITROGEN 16 MG/DL (9-23); CALCIUM LEVEL 8.4 MG/DL (8.3-10.6); CARBON DIOXIDE LEVEL 29 MMOL/L (20-31); CHLORIDE LEVEL 106 MMOL/L (98-107); CREATININE FOR GFR 0.74 MG/DL (0.70-1.30); GLOMERULAR FILTRATION RATE > 60.0 (>49); GLUCOSE, FASTING 121 MG/DL (74-106); MAGNESIUM LEVEL 2.2 MG/DL (1.8-2.4); SODIUM LEVEL 140 MMOL/L (136-145); TOTAL PROTEIN 4.2 G/DL (5.7-8.2)
[2024-05-15] MEDS: FUROSEMIDE 20MG/2ML VIAL IV ONE (10:36)
[2024-05-15 12:00] VITALS: TEMP 98.1; O2SAT 96
[2024-05-15] MEDS: INSULIN LISPRO (NovoLOG) PER UNIT SC SCH (18:00)
[2024-05-15] MEDS ORDERED: INSULIN LISPRO (NovoLOG) PER UNIT SC SCH (18:00)
[2024-05-15] MEDS: AMINO AC/ELECTROLYTE/DEX/CALC 2,000 ML IV SCH (18:13)
[2024-05-15] MEDS: FAT EMULSION IV 250 ML IV ONE (18:13)
[2024-05-15 20:58] VITALS: BP 135/76; TEMP 97.9; O2SAT 99
[2024-05-16 00:12] VITALS: BP 128/75; TEMP 98.4; O2SAT 95
[2024-05-16 04:00] VITALS: BP 126/73; TEMP 97.9; O2SAT 95
[2024-05-16 05:51] LABS: HEMATOCRIT 34.9 % (42.0-52.0); HEMOGLOBIN 11.6 g/dl (13.5-17.5); MEAN CORPUSCULAR HEMOGLOBIN 28.7 pg (27.0-33.0); MEAN CORPUSCULAR HGB CONC 33.2 g/dl (32.0-36.5); MEAN CORPUSCULAR VOLUME 86.4 fl (80.0-96.0); PLATELET COUNT, AUTOMATED 398 10^3/uL (150-450); RED BLOOD COUNT 4.04 10^6/uL (4.30-6.10); WHITE BLOOD COUNT 9.4 10^3/uL (4.0-10.0)
[2024-05-16 06:15] LABS: ALBUMIN 2.3 G/DL (3.2-5.2); ALKALINE PHOSPHATASE 77 U/L (40-129); ALT/SGPT 19 U/L (7.0-40); AST/SGOT 29 U/L (<34); BILIRUBIN,TOTAL 0.5 MG/DL (0.3-1.2); BLOOD UREA NITROGEN 17 MG/DL (9-23); CALCIUM LEVEL 8.3 MG/DL (8.3-10.6); CARBON DIOXIDE LEVEL 29 MMOL/L (20-31); CHLORIDE LEVEL 102 MMOL/L (98-107); CREATININE FOR GFR 0.78 MG/DL (0.70-1.30); GLOMERULAR FILTRATION RATE > 60.0 (>49); GLUCOSE, FASTING 123 MG/DL (74-106); POTASSIUM SERUM 4.3 MMOL/L (3.5-5.1); SODIUM LEVEL 137 MMOL/L (136-145); TOTAL PROTEIN 4.4 G/DL (5.7-8.2)
[2024-05-16 07:57] VITALS: BP 127/67; TEMP 98.1; O2SAT 95
[2024-05-16 12:00] VITALS: BP 130/68; TEMP 98.1; O2SAT 98
[2024-05-16] MEDS: FUROSEMIDE 20MG/2ML VIAL IV ONE (12:49)
[2024-05-16] MEDS ORDERED: FAT EMULSION IV 250 ML IV ONE (18:00)
[2024-05-16] MEDS ORDERED: INSULIN LISPRO (NovoLOG) PER UNIT SC SCH (18:00)
[2024-05-16] MEDS ORDERED: MULTIVITAMIN -ADULT INJECTION 10 ML, ZINC/COPPER/MANGANESE/SELENIUM 1 ML in AMINO AC/EL... IV SCH (18:00)
[2024-05-16 20:00] VITALS: BP 108/68; TEMP 98.2; O2SAT 96
[2024-05-17 04:00] VITALS: BP 95/58; TEMP 97.9; O2SAT 96
[2024-05-17 06:26] LABS: HEMOGLOBIN 11.9 g/dl (13.5-17.5); MEAN CORPUSCULAR HEMOGLOBIN 27.9 pg (27.0-33.0); MEAN CORPUSCULAR HGB CONC 32.2 g/dl (32.0-36.5); MEAN CORPUSCULAR VOLUME 86.7 fl (80.0-96.0); PLATELET COUNT, AUTOMATED 436 10^3/uL (150-450); RED BLOOD COUNT 4.27 10^6/uL (4.30-6.10); WHITE BLOOD COUNT 10.2 10^3/uL (4.0-10.0)
[2024-05-17 07:02] LABS: ALBUMIN 2.5 G/DL (3.2-5.2); ALKALINE PHOSPHATASE 89 U/L (40-129); ALT/SGPT 22 U/L (7.0-40); AST/SGOT 33 U/L (<34); BILIRUBIN,TOTAL 0.9 MG/DL (0.3-1.2); BLOOD UREA NITROGEN 19 MG/DL (9-23); CALCIUM LEVEL 8.7 MG/DL (8.3-10.6); CARBON DIOXIDE LEVEL 30 MMOL/L (20-31); CHLORIDE LEVEL 102 MMOL/L (98-107); CREATININE FOR GFR 0.95 MG/DL (0.70-1.30); GLOMERULAR FILTRATION RATE > 60.0 (>49); GLUCOSE, FASTING 94 MG/DL (74-106); MAGNESIUM LEVEL 2.2 MG/DL (1.8-2.4); POTASSIUM SERUM 4.9 MMOL/L (3.5-5.1); SODIUM LEVEL 136 MMOL/L (136-145); TOTAL PROTEIN 4.6 G/DL (5.7-8.2)
[2024-05-17 08:00] VITALS: BP 108/73; TEMP 97.7; O2SAT 96
[2024-05-17 09:44] LABS: C REACTIVE PROTEIN QUANTITATIV 1.33 MG/DL (<1.0)
[2024-05-17 12:00] VITALS: BP 94/63; TEMP 97.7; O2SAT 96
[2024-05-17] MEDS: metroNIDAZOLE (FLAGYL) 500MG TABLET PO SCH (17:43)
[2024-05-17] MEDS: CIPROFLOXACIN 500MG TABLET PO SCH (17:43)
[2024-05-17 20:00] VITALS: BP 98/51; TEMP 97.7; O2SAT 94
[2024-05-17] MEDS: ATORVASTATIN 20 MG TAB PO SCH (21:37)
[2024-05-18 04:00] VITALS: BP 99/53; TEMP 98.6; O2SAT 98
[2024-05-18 06:20] LABS: HEMATOCRIT 35.6 % (42.0-52.0); HEMOGLOBIN 11.6 g/dl (13.5-17.5); MEAN CORPUSCULAR HEMOGLOBIN 28.6 pg (27.0-33.0); MEAN CORPUSCULAR HGB CONC 32.6 g/dl (32.0-36.5); MEAN CORPUSCULAR VOLUME 87.9 fl (80.0-96.0); PLATELET COUNT, AUTOMATED 459 10^3/uL (150-450); RED BLOOD COUNT 4.05 10^6/uL (4.30-6.10); WHITE BLOOD COUNT 8.8 10^3/uL (4.0-10.0)
[2024-05-18 06:40] LABS: ALBUMIN 2.5 G/DL (3.2-5.2); ALKALINE PHOSPHATASE 103 U/L (40-129); ALT/SGPT 24 U/L (7.0-40); AST/SGOT 35 U/L (<34); BILIRUBIN,TOTAL 0.7 MG/DL (0.3-1.2); BLOOD UREA NITROGEN 18 MG/DL (9-23); CALCIUM LEVEL 8.7 MG/DL (8.3-10.6); CARBON DIOXIDE LEVEL 30 MMOL/L (20-31); CHLORIDE LEVEL 103 MMOL/L (98-107); CREATININE FOR GFR 0.92 MG/DL (0.70-1.30); GLOMERULAR FILTRATION RATE > 60.0 (>49); GLUCOSE, FASTING 101 MG/DL (74-106); MAGNESIUM LEVEL 2.2 MG/DL (1.8-2.4); POTASSIUM SERUM 4.7 MMOL/L (3.5-5.1); SODIUM LEVEL 138 MMOL/L (136-145); TOTAL PROTEIN 4.6 G/DL (5.7-8.2)
[2024-05-18 08:00] VITALS: BP 107/57; TEMP 97.9; O2SAT 95
[2024-05-18 12:00] VITALS: BP_SYST 110; BP_SYST 84; BP_DIAS 55; BP_DIAS 65; TEMP 97.9; O2SAT 96
[2024-05-18 16:00] VITALS: BP 105/61; TEMP 98.1; O2SAT 78
[2024-05-18 20:16] VITALS: BP 102/59; TEMP 97.7; O2SAT 97
[2024-05-19 04:01] VITALS: BP 118/68; TEMP 97.9; O2SAT 100
[2024-05-19 06:01] LABS: HEMATOCRIT 33.9 % (42.0-52.0); HEMOGLOBIN 11.1 g/dl (13.5-17.5); MEAN CORPUSCULAR HEMOGLOBIN 28.8 pg (27.0-33.0); MEAN CORPUSCULAR HGB CONC 32.7 g/dl (32.0-36.5); MEAN CORPUSCULAR VOLUME 87.8 fl (80.0-96.0); PLATELET COUNT, AUTOMATED 470 10^3/uL (150-450); RED BLOOD COUNT 3.86 10^6/uL (4.30-6.10); WHITE BLOOD COUNT 8.1 10^3/uL (4.0-10.0)
[2024-05-19 06:28] LABS: ALBUMIN 2.5 G/DL (3.2-5.2); ALKALINE PHOSPHATASE 104 U/L (40-129); ALT/SGPT 23 U/L (7.0-40); AST/SGOT 33 U/L (<34); BILIRUBIN,TOTAL 0.4 MG/DL (0.3-1.2); BLOOD UREA NITROGEN 15 MG/DL (9-23); CALCIUM LEVEL 8.4 MG/DL (8.3-10.6); CARBON DIOXIDE LEVEL 28 MMOL/L (20-31); CHLORIDE LEVEL 106 MMOL/L (98-107); CREATININE FOR GFR 0.84 MG/DL (0.70-1.30); GLOMERULAR FILTRATION RATE > 60.0 (>49); GLUCOSE, FASTING 108 MG/DL (74-106); POTASSIUM SERUM 4.5 MMOL/L (3.5-5.1); SODIUM LEVEL 140 MMOL/L (136-145); TOTAL PROTEIN 4.6 G/DL (5.7-8.2)
[2024-05-19 12:00] VITALS: BP 114/68; TEMP 98.2; O2SAT 99
[2024-05-19 19:20] VITALS: BP 115/70; TEMP 97.7; O2SAT 98
[2024-05-20 04:04] VITALS: BP 108/63; TEMP 97.9; O2SAT 97
[2024-05-20 12:00] VITALS: BP 111/64; TEMP 97.7; O2SAT 98
[2024-05-20 20:36] VITALS: BP 106/64; TEMP 97.7; O2SAT 98
[2024-05-20] MEDS: LABETALOL 200 MG TAB PO SCH (21:00)
[2024-05-20] MEDS: MAGNESIUM OXIDE 400MG TAB (MAG-OX) PO SCH (21:05)
[2024-05-21 03:50] VITALS: BP 127/78; TEMP 97.7; O2SAT 98
[2024-05-21 03:55] VITALS: BP_SYST 109; BP_SYST 116; BP_DIAS 66; BP_DIAS 73; TEMP 97.9; O2SAT 98
[2024-05-21 08:00] VITALS: BP 129/63; TEMP 97.7; O2SAT 97
[2024-05-21 08:22] LABS: HEMATOCRIT 34.7 % (42.0-52.0); HEMOGLOBIN 11.2 g/dl (13.5-17.5); MEAN CORPUSCULAR HEMOGLOBIN 28.3 pg (27.0-33.0); MEAN CORPUSCULAR HGB CONC 32.3 g/dl (32.0-36.5); MEAN CORPUSCULAR VOLUME 87.6 fl (80.0-96.0); PLATELET COUNT, AUTOMATED 447 10^3/uL (150-450); RED BLOOD COUNT 3.96 10^6/uL (4.30-6.10); WHITE BLOOD COUNT 7.8 10^3/uL (4.0-10.0)
[2024-05-21] MEDS: SODIUM CHLORIDE 0.9% 1000 ML IV ONE (08:24)
[2024-05-21] MEDS: GASTROGRAFIN SOLUTION 30ML PO SCH (08:39)
[2024-05-21 08:57] LABS: ALBUMIN 2.6 G/DL (3.2-5.2); ALKALINE PHOSPHATASE 104 U/L (40-129); ALT/SGPT 25 U/L (7.0-40); AST/SGOT 26 U/L (<34); BILIRUBIN,TOTAL 0.6 MG/DL (0.3-1.2); BLOOD UREA NITROGEN 11 MG/DL (9-23); CALCIUM LEVEL 8.7 MG/DL (8.3-10.6); CARBON DIOXIDE LEVEL 26 MMOL/L (20-31); CHLORIDE LEVEL 106 MMOL/L (98-107); GLOMERULAR FILTRATION RATE > 60.0 (>49); GLUCOSE, FASTING 119 MG/DL (74-106); POTASSIUM SERUM 4.3 MMOL/L (3.5-5.1); SODIUM LEVEL 140 MMOL/L (136-145); TOTAL PROTEIN 4.7 G/DL (5.7-8.2)
[2024-05-21 12:00] VITALS: BP 110/74; TEMP 98.1; O2SAT 99
[2024-05-21] MEDS ORDERED: LIDOCAINE 1% MDV 20ML VIAL As Ordered ONE (16:09)
[2024-05-21 20:00] VITALS: BP 113/72; TEMP 98.8; O2SAT 99
[2024-05-22 04:00] VITALS: BP 102/57; TEMP 97.9; O2SAT 95
[2024-05-22] MEDS ORDERED: METR-265 PO (08:28)
[2024-05-22] MEDS ORDERED: CIPR500T39 PO (08:28)
[2024-05-22 09:21] VITALS: BP 115/67
[2024-05-22] MEDS: MECLIZINE 25 MG TABLET PO PRN (11:08)
== END 2024-05-22 11:55 | disposition home health service (06) | DRG 329 ==
LOC: M OR 06:01 → M MS5PR 13:52 → M PCU 05-08 21:12 → M MSPAV 05-14 23:18
PROVIDERS: ADMIT Surgery; ATTEND Surgery
PROC: 8E0W4CZ Robotic Assisted Procedure of Trunk Region, Percutaneous Endoscopic Approach (ICD-10-PCS; 2024-05-01)
PROC: 0DTN4ZZ Resection of Sigmoid Colon, Percutaneous Endoscopic Approach (ICD-10-PCS; principal; 2024-05-01 07:30)
PROC: 0DQN4ZZ Repair Sigmoid Colon, Percutaneous Endoscopic Approach (ICD-10-PCS; 2024-05-06)
PROC: 0DJD8ZZ Inspection of Lower Intestinal Tract, Via Natural or Artificial Opening Endoscopic (ICD-10-PCS; 2024-05-06)
PROC: 8E0W4CZ Robotic Assisted Procedure of Trunk Region, Percutaneous Endoscopic Approach (ICD-10-PCS; 2024-05-06)
PROC: 0D1 Gastrointestinal System, Bypass (ICD-10-PCS; 2024-05-13)
PROC: 0W9G3ZZ Drainage of Peritoneal Cavity, Percutaneous Approach (ICD-10-PCS; 2024-05-21)
DX: K57.32 Diverticulitis of large intestine without perforation or abscess without bleeding (principal); K65.9 Peritonitis, unspecified; K91.89 Other postprocedural complications and disorders of digestive system; K56.609 Unspecified intestinal obstruction, unspecified as to partial versus complete obstruction; K42.0 Umbilical hernia with obstruction, without gangrene; I47.10 Supraventricular tachycardia, unspecified; E87.1 Hypo-osmolality and hyponatremia; C91.10 Chronic lymphocytic leukemia of B-cell type not having achieved remission; J98.11 Atelectasis; K56.7 Ileus, unspecified; E83.42 Hypomagnesemia; I10 Essential (primary) hypertension; E78.5 Hyperlipidemia, unspecified; M45.9 Ankylosing spondylitis of unspecified sites in spine; H81.10 Benign paroxysmal vertigo, unspecified ear; E16.2 Hypoglycemia, unspecified; Z86.718 Personal history of other venous thrombosis and embolism; Z86.711 Personal history of pulmonary embolism; Z79.01 Long term (current) use of anticoagulants; Z79.899 Other long term (current) drug therapy; Z88.0 Allergy status to penicillin

== ENCOUNTER → 2024-12-01 | Outpatient (CLI) | payer MEDICARE ==
[~2024-12-01] MED LIST changes: +CARB15DR25 AU; -CARBOT AU; +CIPR500T39 PO; +GASTROGRAFIN SOLUTION 30 ML As Ordered ONE; +METR-265 PO
== END ==
LOC: M RAD 09:15
PROVIDERS: ATTEND Surgery
DX: Z90.49 Acquired absence of other specified parts of digestive tract (principal)
CPT/HCPCS: 74270; Q9963

== ENCOUNTER 2025-01-22 07:30 | Inpatient (IN) | payer MEDICARE ==
[2025-01-21 14:51] VITALS: BP 129/80; TEMP 98.5; O2SAT 91
[2025-01-22] VITALS (8 sets, daily range): BP systolic 114–141; BP diastolic 60–80; TEMP 97.7–98.5; O2SAT 90–95
[~2025-01-22] VITALS: Ht 175.3 cm; Wt 88.7 kg
[~2025-01-22 07:30] MED LIST changes: -GASTROGRAFIN SOLUTION 30 ML As Ordered ONE; +ceFAZolin SOD 2 GM IV ONCE IV ONE
[2025-01-22] MEDS ORDERED: MIDAZOLAM INJ 2 MG/2 ML VIAL As Ordered ONE (09:29)
[2025-01-22] MEDS ORDERED: SUGAMMADEX SODIUM 500 MG/5 ML VIAL As Ordered ONE (09:31)
[2025-01-22] MEDS ORDERED: LIDOCAINE 2% 100 MG/5 ML SDV (FOR ANES.) As Ordered ONE (09:31)
[2025-01-22] MEDS ORDERED: ROCURONIUM BROMIDE 50MG/5ML VIAL As Ordered ONE (09:31)
[2025-01-22] MEDS ORDERED: ONDANSETRON 4MG/2ML VIAL As Ordered ONE (09:52)
[2025-01-22] MEDS ORDERED: KETOROLAC 30 MG/ML 1 ML VIAL As Ordered ONE (09:52)
[2025-01-22] MEDS ORDERED: dexAMETHasone 4 MG/ML 1 ML VIAL As Ordered ONE (09:53)
[2025-01-22] MEDS: metroNIDAZOLE 500 MG in IV 1 EA IV ONE (10:00)
[2025-01-22] MEDS ORDERED: MORPHINE 2 MG/ML 1 ML VIAL IV PRN (10:20)
[2025-01-22] MEDS: LR 1,000 ML IV SCH (10:25)
[2025-01-22] MEDS: ceFAZolin SOD 2 GM IV ONCE IV ONE (10:47)
[2025-01-22] MEDS ORDERED: ACETAMINOPHEN 1000MG/100ML IV BAG As Ordered ONE (10:52)
[2025-01-22] MEDS ORDERED: HOME MED LIST COMPLETE! XX SCH (10:55)
[2025-01-22] MEDS ORDERED: dexmedeTOMIDine (4 MCG/ML) 200 MCG/50 ML BTL As Ordered ONE (11:10)
[2025-01-22] MEDS ORDERED: HYDROmorphone HCL 2 MG/ML 1 ML VIAL As Ordered ONE (11:14)
[2025-01-22] MEDS ORDERED: ONDANSETRON 4MG/2ML VIAL IV PRN (12:35)
[2025-01-22] MEDS ORDERED: HYDROMORPHONE HCL 0.5 MG/0.5 ML SYRINGE IV PRN (12:35)
[2025-01-22] MEDS: NS (Normal Saline) 0.9% 1,000 ML IV SCH (14:49)
[2025-01-22] MEDS: CIPROFLOXACIN 400 MG in IV 1 EA IV SCH (14:50)
[2025-01-22] MEDS: metroNIDAZOLE 500 MG in IV 1 EA IV SCH (17:26)
[2025-01-22] MEDS: ONDANSETRON 4MG/2ML VIAL IV PRN (17:27)
[2025-01-22] MEDS: LABETALOL 200 MG TAB PO SCH (20:59)
[2025-01-22] MEDS: SENNOSIDES/DOCUSATE SODIUM 8.6 MG/50MG TAB PO SCH (20:59)
[2025-01-22] MEDS: ATORVASTATIN 20 MG TAB PO SCH (20:59)
[2025-01-23] VITALS (9 sets, daily range): BP systolic 107–126; BP diastolic 55–70; TEMP 98.1–98.7; O2SAT 86–95
[2025-01-23 06:04] LABS: PLATELET COUNT, AUTOMATED 174 10^3/uL (150-450)
[2025-01-23 06:38] LABS: ALT/SGPT 21.0 U/L (7.0-40); AST/SGOT 25.0 U/L (<34); CALCIUM LEVEL 8.1 MG/DL (8.3-10.6); CARBON DIOXIDE LEVEL 27.0 MMOL/L (20-31); CHLORIDE LEVEL 104.0 MMOL/L (98-107); CREATININE FOR GFR 1.0 MG/DL (0.70-1.30); GLOMERULAR FILTRATION RATE 82.0 (>49); POTASSIUM SERUM 4.0 MMOL/L (3.5-5.1); SODIUM LEVEL 139.0 MMOL/L (136-145)
[2025-01-23] MEDS: PANTOPRAZOLE 40MG TAB PO SCH (08:55)
[2025-01-23] MEDS: APIXABAN 5 MG TAB PO SCH (08:55)
[2025-01-23] MEDS ORDERED: ENOXAPARIN 40 MG/0.4 ML SYRINGE (J1650 PER 10MG) SC SCH (09:00)
[2025-01-23] MEDS: CHLORTHALIDONE 12.5 MG PER 1/2 TABLET PO SCH (09:32)
[2025-01-23] MEDS: MECLIZINE 25 MG TABLET PO PRN (09:59)
[2025-01-24 03:25] VITALS: BP 133/87; TEMP 98.3; O2SAT 93
[2025-01-24 06:12] LABS: PLATELET COUNT, AUTOMATED 164 10^3/uL (150-450)
[2025-01-24 06:44] LABS: ALT/SGPT 18.0 U/L (7.0-40); AST/SGOT 25.0 U/L (<34); CALCIUM LEVEL 8.3 MG/DL (8.3-10.6); CARBON DIOXIDE LEVEL 26.0 MMOL/L (20-31); CHLORIDE LEVEL 103.0 MMOL/L (98-107); CREATININE FOR GFR 1.0 MG/DL (0.70-1.30); GLOMERULAR FILTRATION RATE 82.0 (>49); POTASSIUM SERUM 3.9 MMOL/L (3.5-5.1); SODIUM LEVEL 139.0 MMOL/L (136-145)
[2025-01-24 08:00] VITALS: BP 154/96; TEMP 98.6; O2SAT 95
[2025-01-24 08:14] VITALS: O2SAT 93
[2025-01-24 11:38] VITALS: BP 150/79; TEMP 98; O2SAT 96
[2025-01-24 16:00] VITALS: BP 128/85; TEMP 98.4; O2SAT 96
[2025-01-24 21:07] VITALS: BP 146/90; TEMP 98.9; O2SAT 95
[2025-01-24] MEDS: KETOROLAC 30 MG/ML 1 ML VIAL IV PRN (21:22)
[2025-01-25] VITALS (7 sets, daily range): BP systolic 127–148; BP diastolic 76–90; TEMP 98.2–98.7; O2SAT 92–97
[2025-01-25 06:07] LABS: PLATELET COUNT, AUTOMATED 162 10^3/uL (150-450)
[2025-01-25 06:33] LABS: ALT/SGPT 15.0 U/L (7.0-40); AST/SGOT 22.0 U/L (<34); CALCIUM LEVEL 8.0 MG/DL (8.3-10.6); CARBON DIOXIDE LEVEL 24.0 MMOL/L (20-31); CHLORIDE LEVEL 104.0 MMOL/L (98-107); CREATININE FOR GFR 1.1 MG/DL (0.70-1.30); GLOMERULAR FILTRATION RATE 73.1 (>49); POTASSIUM SERUM 3.5 MMOL/L (3.5-5.1); SODIUM LEVEL 138.0 MMOL/L (136-145)
[2025-01-25] MEDS: KCL 40MEQ in NS 1000ML 1,000 ML IV SCH (11:36)
[2025-01-25] MEDS: PANTOPRAZOLE 40MG VIAL IV SCH (11:36)
[2025-01-26 03:37] VITALS: BP 149/89; TEMP 98.5; O2SAT 95
[2025-01-26 06:38] LABS: PLATELET COUNT, AUTOMATED 182 10^3/uL (150-450)
[2025-01-26 07:02] LABS: ALT/SGPT 19.0 U/L (7.0-40); AST/SGOT 28.0 U/L (<34); CALCIUM LEVEL 7.8 MG/DL (8.3-10.6); CARBON DIOXIDE LEVEL 22.0 MMOL/L (20-31); CHLORIDE LEVEL 109.0 MMOL/L (98-107); CREATININE FOR GFR 1.02 MG/DL (0.70-1.30); GLOMERULAR FILTRATION RATE 80.1 (>49); POTASSIUM SERUM 4.1 MMOL/L (3.5-5.1); SODIUM LEVEL 143.0 MMOL/L (136-145)
[2025-01-26 08:00] VITALS: BP 120/92; TEMP 97.7; O2SAT 95
[2025-01-26 11:09] VITALS: BP 122/82; TEMP 97.7; O2SAT 95
[2025-01-26 11:56] VITALS: BP 122/90; TEMP 98.2; O2SAT 95
[2025-01-26 20:00] VITALS: BP 159/82; TEMP 97.6; O2SAT 98
[2025-01-27 04:00] VITALS: BP 137/75; TEMP 98.3; O2SAT 96
[2025-01-27 07:03] LABS: PLATELET COUNT, AUTOMATED 157 10^3/uL (150-450)
[2025-01-27 07:24] LABS: ALT/SGPT 17 U/L (7.0-40); AST/SGOT 25 U/L (<34); CALCIUM LEVEL 7.6 MG/DL (8.3-10.6); CARBON DIOXIDE LEVEL 21 MMOL/L (20-31); CHLORIDE LEVEL 111 MMOL/L (98-107); CREATININE FOR GFR 0.91 MG/DL (0.70-1.30); GLOMERULAR FILTRATION RATE > 90.0 (>49); POTASSIUM SERUM 4.2 MMOL/L (3.5-5.1); SODIUM LEVEL 142 MMOL/L (136-145)
[2025-01-27 12:00] VITALS: BP 151/75; TEMP 97.7; O2SAT 98
[2025-01-27 19:35] VITALS: BP 154/74; TEMP 98.4; O2SAT 97
[2025-01-28 05:53] LABS: PLATELET COUNT, AUTOMATED 166 10^3/uL (150-450)
[2025-01-28 06:06] VITALS: BP 141/86; TEMP 98.8; O2SAT 97
[2025-01-28 06:26] LABS: ALT/SGPT 18.0 U/L (7.0-40); AST/SGOT 29.0 U/L (<34); CALCIUM LEVEL 7.6 MG/DL (8.3-10.6); CARBON DIOXIDE LEVEL 23.0 MMOL/L (20-31); CHLORIDE LEVEL 109.0 MMOL/L (98-107); CREATININE FOR GFR 0.99 MG/DL (0.70-1.30); GLOMERULAR FILTRATION RATE 83.0 (>49); POTASSIUM SERUM 3.5 MMOL/L (3.5-5.1); SODIUM LEVEL 141.0 MMOL/L (136-145)
[2025-01-28 08:05] VITALS: BP 137/66
[2025-01-28] MEDS ORDERED: HYDR-3715 PO (09:32)
== END 2025-01-28 10:26 | disposition home or self-care (01) | DRG 330 ==
LOC: M OR 09:08 → EDSTATUS 14:00 → M MSPAV 14:29
PROVIDERS: ADMIT Surgery; ATTEND Surgery
PROC: 0DB Gastrointestinal System, Excision (ICD-10-PCS; principal; 2025-01-22 11:30)
DX: Z43.2 Encounter for attention to ileostomy (principal); K56.7 Ileus, unspecified; I10 Essential (primary) hypertension; E78.5 Hyperlipidemia, unspecified; R42 Dizziness and giddiness; K66.0 Peritoneal adhesions (postprocedural) (postinfection); Z79.899 Other long term (current) drug therapy; Z79.01 Long term (current) use of anticoagulants; Z88.0 Allergy status to penicillin